=== PATIENT | female | born 1965 | race Caucasian/White ===

== ENCOUNTER 2018-01-17 10:16 | Day surgery (SDC) | payer OTHER ==
[~2018-01-17] VITALS: Ht 167.6 cm; Wt 98.9 kg
[~2018-01-17 10:16] MED LIST: ACET325 PO; AMOX500 PO; ATEN100; BUTASPCAF PO; DIVA250EC; DOCU100 PO; DOXY100 PO; HYDACE5 PO; HYDGUAL120 PO; HYDHOMSY PO; Humalog100 UNIT/1; IBUP800; IBUP800 PO; INSULANPEN SC; Inderal40 MG; Inderal40 MG PO; LEVO750 PO; LOSA25 PO; Lisinopril2.5 MG PO; META800 PO; METF500 PO; Norco 5-325 Ta1 EACH PO; PANT40 PO; SIME80CH PO; VENL75ER; Vibramycin100 MG PO; Zofran Odt4 MG SL
[2018-09-26] MEDS ORDERED: Zofran4 MG PO (16:06)
[2018-09-26] MEDS ORDERED: KETO10 PO ×2 (16:06→16:19)
== END 2018-01-17 12:23 | disposition home or self-care (01) ==
LOC: ORSCSDS 10:16
PROVIDERS: Internal Medicine Gastroenterology
PROC: 0DB68ZX Excision of Stomach, Via Natural or Artificial Opening Endoscopic, Diagnostic (ICD-10-PCS; principal; 2018-01-17 11:45)
PROC: 0D757ZZ Dilation of Esophagus, Via Natural or Artificial Opening (ICD-10-PCS; principal; 2018-01-17 11:45)
DX: R11.2 Nausea with vomiting, unspecified (principal); R10.13 Epigastric pain; R13.14 Dysphagia, pharyngoesophageal phase; K21.9 Gastro-esophageal reflux disease without esophagitis; I10 Essential (primary) hypertension; E11.9 Type 2 diabetes mellitus without complications; K20.9 Esophagitis, unspecified; E66.01 Morbid (severe) obesity due to excess calories; D86.9 Sarcoidosis, unspecified; Z87.891 Personal history of nicotine dependence; Z79.4 Long term (current) use of insulin; Z79.899 Other long term (current) drug therapy
CPT/HCPCS: 82947; 88305; 88342; J7120

== ENCOUNTER 2018-01-31 08:12 | Day surgery (SDC) | payer OTHER ==
[2018-09-26] MEDS ORDERED: Zofran4 MG PO (16:06)
[2018-09-26] MEDS ORDERED: KETO10 PO ×2 (16:06→16:19)
== END 2018-01-31 22:50 | disposition home or self-care (01) ==
LOC: MOI RAD 08:12
PROC: BP39ZZZ Magnetic Resonance Imaging (MRI) of Left Shoulder (ICD-10-PCS; principal; 2018-01-31)
DX: M75.82 Other shoulder lesions, left shoulder (principal)
CPT/HCPCS: 23350; 73222; 77002; A9577; Q9967

== ENCOUNTER 2018-04-18 06:17 | Day surgery (SDC) | payer OTHER ==
[~2018-04-18] VITALS: Ht 165.1 cm; Wt 103.7 kg
[2018-04-18] MEDS ORDERED: LOSA50 PO (07:12)
[2018-04-18] MEDS ORDERED: BASAGLAR K100 UNIT/1 SC (07:13)
[2018-04-18] MEDS ORDERED: METF500C PO (07:14)
== END 2018-04-18 11:50 | disposition home or self-care (01) ==
LOC: ORSCSDS 06:17
DX: M75.112 Incomplete rotator cuff tear or rupture of left shoulder, not specified as traumatic (principal); I10 Essential (primary) hypertension; E11.9 Type 2 diabetes mellitus without complications; Z79.4 Long term (current) use of insulin; Z79.899 Other long term (current) drug therapy; Z87.891 Personal history of nicotine dependence
CPT/HCPCS: 82947; C1713; J0171; J0360; J0690; J1100; J1885; J2250; J2405; J2550; J2765; J3010; J7120

== ENCOUNTER 2018-07-01 07:21 | Emergency (ER) | payer OTHER ==
[~2018-07-01] VITALS: Ht 165.1 cm; Wt 98.4 kg
[~2018-07-01 07:21] MED LIST changes: +BASAGLAR K100 UNIT/1 SC; +LOSA50 PO; +METF500C PO
[2018-07-01 08:26] LABS: Source, Urine Clean Catch
[2018-07-01] MEDS ORDERED: Omeprazole20 M1 PO (08:28)
[2018-07-01] MEDS ORDERED: Aspir 8181 MG PO (08:28)
[2018-07-01 08:29] LABS: BASOPHILS ABSOLUTE AUTO 0.06 K/mm3 (0.00-0.23); BASOPHILS PERCENT AUTO 1 % (0-2); EOSINOPHILS ABSOLUTE AUTO 0.32 K/mm3 (0.00-0.68); EOSINOPHILS PERCENT AUTO 4 % (0-6); Hematocrit 39.3 % (33.0-51.0); Hemoglobin 12.7 g/dL (11.5-16.0); IMMATURE GRAN ABSOLUTE AUTO 0.04 K/mm3 (0.00-0.10); IMMATURE GRAN PERCENT AUTO 1 % (0-1); LYMPHOCYTES ABSOLUTE AUTO 2.85 K/mm3 (0.84-5.20); LYMPHOCYTES PERCENT AUTO 34 % (21-46); MONOCYTES ABSOLUTE AUTO 0.48 K/mm3 (0.16-1.47); MONOCYTES PERCENT AUTO 6 % (4-13); Mean Corpuscular HGB 25.6 pg (26.0-34.0); Mean Corpuscular HGB Conc 32.3 g/dL (31.5-36.5); Mean Corpuscular Volume 79 fL (80-100); Mean Platelet Volume 11.8 fL (9.1-12.4); NEUTROPHILS ABSOLUTE AUTO 4.57 K/mm3 (1.96-9.15); NEUTROPHILS PERCENT AUTO 55 % (41-73); Platelet Count 245 K/mm3 (150-400); RDW Coefficient Variation 13.7 % (11.7-14.2); RDW Standard Deviation 39.3 fL (35.1-46.3); Red Blood Cell Count 4.97 M/mm3 (3.80-5.20); White Blood Cell Count 8.32 K/mm3 (4.00-11.30)
[2018-07-01 08:30] LABS: Bilirubin, Urine Neg (Neg); Blood, Urine Neg (Neg); Glucose Qualitative, Urine Neg (Neg); Ketones, Urine Neg (Neg); Leukocyte Esterase, Urine Neg (Neg); Nitrite, Urine Neg (Neg); Protein, Urine Neg (Neg); Urobilinogen, Urine NORM (Normal)
[2018-07-01 08:35] LABS: Appearance, Urine Clear (Clear); Color, Urine Yellow (P-Yellow)
[2018-07-01 08:47] LABS: Alanine Aminotransfer (ALT/SGP 33 U/L (12-78); Albumin, Blood 3.9 g/dL (3.4-5.0); Albumin/Globulin Ratio 0.9 (0.8-1.8); Alk Phos 111 U/L (50-136); Anion Gap 8 mmol/L (6-16); Aspartate Aminotrans (AST/SGOT 15 U/L (12-37); Bilirubin, Total 0.2 mg/dL (0.1-1.0); Blood Urea Nitrogen 17 mg/dL (8-24); Bun/Creatinine Ratio 29.4 (12.0-20.0); CO2, Blood 24 mmol/L (21-32); Chloride, Blood 105 mmol/L (98-108); Creatinine, Blood 0.58 mg/dL (0.40-1.00); Globulin, Blood 4.2 g/dL (2.2-4.0); Glomerular Filtration Rate >60 (60-); Glucose, Blood 265 mg/dL (70-99); Potassium, Blood 3.8 mmol/L (3.5-5.5); Sodium, Blood 137 mmol/L (136-145); Total Protein, Blood 8.1 g/dL (6.4-8.2)
[2018-07-01] MEDS ORDERED: Zofran Odt8 MG SL (09:36)
[2018-07-01] MEDS ORDERED: Percocet 5-3251 EACH PO (09:36)
== END 2018-07-01 10:28 | disposition home or self-care (01) ==
LOC: ER 07:21
PROVIDERS: Physician Assistant
DX: R10.11 Right upper quadrant pain (principal); E11.42 Type 2 diabetes mellitus with diabetic polyneuropathy; I10 Essential (primary) hypertension; Z88.1 Allergy status to other antibiotic agents; Z88.5 Allergy status to narcotic agent; Z88.2 Allergy status to sulfonamides; Z88.8 Allergy status to other drugs, medicaments and biological substances; Z79.899 Other long term (current) drug therapy; Z79.4 Long term (current) use of insulin; Z79.82 Long term (current) use of aspirin; Z87.891 Personal history of nicotine dependence
CPT/HCPCS: 36415; 74177; 80053; 81003; 83690; 85025; 96361; 96374; 96375; 99284-25; J1170; J2405; J7030; Q9967

== ENCOUNTER 2018-08-08 07:58 | Day surgery (SDC) | payer OTHER ==
[~2018-08-08] VITALS: Ht 167.6 cm; Wt 99.8 kg
[~2018-08-08 07:58] MED LIST changes: +Aspir 8181 MG PO; +Omeprazole20 M1 PO; +Percocet 5-3251 EACH PO; +Zofran Odt8 MG SL
[2018-08-08] MEDS ORDERED: NEBI5 (08:46)
== END 2018-08-08 10:19 | disposition home or self-care (01) ==
LOC: ORSCSDS 07:58
DX: R19.7 Diarrhea, unspecified (principal); K59.00 Constipation, unspecified; R10.84 Generalized abdominal pain; Z86.010 Personal history of colon polyps; D12.5 Benign neoplasm of sigmoid colon; K62.1 Rectal polyp; K57.30 Diverticulosis of large intestine without perforation or abscess without bleeding; K64.8 Other hemorrhoids; I10 Essential (primary) hypertension; E11.9 Type 2 diabetes mellitus without complications
CPT/HCPCS: 82947; J2250; J7120

== ENCOUNTER 2019-06-19 06:59 | Emergency (ER) | payer OTHER ==
[~2019-06-19] VITALS: Ht 165.1 cm; Wt 101.6 kg
[~2019-06-19 06:59] MED LIST changes: +KETO10 PO; +NEBI5; +Zofran4 MG PO
== END 2019-06-19 10:07 | disposition home or self-care (01) ==
LOC: ER 06:59
DX: S63.502A Unspecified sprain of left wrist, initial encounter (principal); S83.92XA Sprain of unspecified site of left knee, initial encounter; E11.40 Type 2 diabetes mellitus with diabetic neuropathy, unspecified; I10 Essential (primary) hypertension; Z79.899 Other long term (current) drug therapy; Z79.4 Long term (current) use of insulin; Z88.2 Allergy status to sulfonamides; Z88.5 Allergy status to narcotic agent; Z87.891 Personal history of nicotine dependence; W18.30XA Fall on same level, unspecified, initial encounter
CPT/HCPCS: 29125; 73110; 73564; 73590; 99283-25

== ENCOUNTER 2019-12-11 10:13 | Emergency (ER) | payer OTHER ==
[~2019-12-11] VITALS: Ht 165.1 cm; Wt 94.8 kg
[~2019-12-11 10:13] MED LIST changes: -NEBI5; +NEBI5 PO
[2019-12-11 10:43] LABS: BASOPHILS ABSOLUTE AUTO 0.09 K/mm3 (0.00-0.23); BASOPHILS PERCENT AUTO 1 % (0-2); EOSINOPHILS ABSOLUTE AUTO 0.58 K/mm3 (0.00-0.68); EOSINOPHILS PERCENT AUTO 5 % (0-6); Hematocrit 35.1 % (33.0-51.0); IMMATURE GRAN ABSOLUTE AUTO 0.29 K/mm3 (0.00-0.10); IMMATURE GRAN PERCENT AUTO 2 % (0-1); LYMPHOCYTES ABSOLUTE AUTO 2.63 K/mm3 (0.84-5.20); LYMPHOCYTES PERCENT AUTO 22 % (21-46); MONOCYTES PERCENT AUTO 5 % (4-13); Mean Corpuscular HGB 25.8 pg (26.0-34.0); Mean Corpuscular HGB Conc 31.3 g/dL (31.5-36.5); Mean Corpuscular Volume 82 fL (80-100); Mean Platelet Volume 11.4 fL (9.1-12.4); NEUTROPHILS ABSOLUTE AUTO 7.68 K/mm3 (1.96-9.15); NEUTROPHILS PERCENT AUTO 65 % (41-73); Platelet Count 383 K/mm3 (150-400); RDW Coefficient Variation 14.4 % (11.7-14.2); RDW Standard Deviation 42.5 fL (35.1-46.3); Red Blood Cell Count 4.27 M/mm3 (3.80-5.20); White Blood Cell Count 11.87 K/mm3 (4.00-11.30)
[2019-12-11 11:02] LABS: Alanine Aminotransfer (ALT/SGP 33 U/L (12-78); Albumin, Blood 3.4 g/dL (3.4-5.0); Albumin/Globulin Ratio 0.7 (0.8-1.8); Alk Phos 100 U/L (50-136); Anion Gap 7 mmol/L (6-16); Aspartate Aminotrans (AST/SGOT 25 U/L (12-37); Bilirubin, Total 0.4 mg/dL (0.1-1.0); Blood Urea Nitrogen 13 mg/dL (8-24); Bun/Creatinine Ratio 19.3 (12.0-20.0); CO2, Blood 26 mmol/L (21-32); Calcium, Blood 9.1 mg/dL (8.5-10.1); Chloride, Blood 106 mmol/L (98-108); Creatinine, Blood 0.67 mg/dL (0.40-1.00); Globulin, Blood 4.8 g/dL (2.2-4.0); Glomerular Filtration Rate >60 (60-); Glucose, Blood 171 mg/dL (70-99); Potassium, Blood 3.7 mmol/L (3.5-5.5); Sodium, Blood 139 mmol/L (136-145); Total Protein, Blood 8.2 g/dL (6.4-8.2)
[2019-12-11 11:56] LABS: Source, Urine Clean Catch
[2019-12-11 12:01] LABS: Bilirubin, Urine Neg (Neg); Blood, Urine 1+ (Neg); Glucose Qualitative, Urine Neg (Neg); Ketones, Urine 3+ (Neg); Leukocyte Esterase, Urine 1+ (Neg); Nitrite, Urine Neg (Neg); Protein, Urine 2+ (Neg); Specific Gravity, Urine 1.015 (1.003-1.022); Urobilinogen, Urine 1+ (Normal)
[2019-12-11 12:07] LABS: Appearance, Urine Clear (Clear); Color, Urine Yellow (P-Yellow)
[2019-12-11 12:14] LABS: Bacteria Few /hpf; Mucus Light (0-Heavy); Squamous Epithelial Cells Few /hpf (Few)
== END 2019-12-11 16:20 | disposition home or self-care (01) ==
LOC: ER 10:13
PROVIDERS: Emergency Medicine
DX: G89.18 Other acute postprocedural pain (principal); R10.13 Epigastric pain; E11.40 Type 2 diabetes mellitus with diabetic neuropathy, unspecified; I10 Essential (primary) hypertension; Z88.1 Allergy status to other antibiotic agents; Z88.2 Allergy status to sulfonamides; Z88.5 Allergy status to narcotic agent; Z88.8 Allergy status to other drugs, medicaments and biological substances; Z79.899 Other long term (current) drug therapy; Z79.4 Long term (current) use of insulin; Z87.891 Personal history of nicotine dependence; Z98.84 Bariatric surgery status
CPT/HCPCS: 36415; 74177; 74220; 80053; 81001; 83690; 85025; 87086; 96361; 96374-59; 96375; 96376; 99284-25; J1170; J2405; J7030; Q9967

== ENCOUNTER → 2020-01-15 | Outpatient (CLI) | payer OTHER | END | disposition home or self-care (01) | LOC: LAB 17:04 → LAB SHORT 17:04 | DX: R10.9 Unspecified abdominal pain (principal); R82.90 Unspecified abnormal findings in urine | CPT/HCPCS: 87077; 87086; 87186 ==

== ENCOUNTER 2020-06-16 08:06 | Inpatient (IN) | payer OTHER ==
[~2020-06-16] VITALS: Ht 165.1 cm; Wt 67.0 kg
[~2020-06-16 08:06] MED LIST changes: -ACET325 PO; +CEFD300 PO; +Cipro500 MG PO; +Flagyl500 MG PO; +HYDR1TAB94 PO; +Keflex500 MG PO; +ONDA4ODT SL
[2020-06-16 10:34] LABS: BASOPHILS ABSOLUTE AUTO 0.16 K/mm3 (0.00-0.23); BASOPHILS PERCENT AUTO 1 % (0-2); EOSINOPHILS ABSOLUTE AUTO 0.42 K/mm3 (0.00-0.68); EOSINOPHILS PERCENT AUTO 3 % (0-6); Hematocrit 48.5 % (33.0-51.0); IMMATURE GRAN ABSOLUTE AUTO 0.24 K/mm3 (0.00-0.10); IMMATURE GRAN PERCENT AUTO 1 % (0-1); LYMPHOCYTES ABSOLUTE AUTO 4.03 K/mm3 (0.84-5.20); LYMPHOCYTES PERCENT AUTO 24 % (21-46); MONOCYTES ABSOLUTE AUTO 1.38 K/mm3 (0.16-1.47); MONOCYTES PERCENT AUTO 8 % (4-13); Mean Corpuscular HGB 26.3 pg (26.0-34.0); Mean Corpuscular Volume 80 fL (80-100); NEUTROPHILS ABSOLUTE AUTO 10.84 K/mm3 (1.96-9.15); NEUTROPHILS PERCENT AUTO 64 % (41-73); Platelet Count 457 K/mm3 (150-400); RDW Coefficient Variation 16.5 % (11.7-14.2); RDW Standard Deviation 44.6 fL (35.1-46.3); Red Blood Cell Count 6.08 M/mm3 (3.80-5.20); White Blood Cell Count 17.07 K/mm3 (4.00-11.30)
[2020-06-16 10:40] LABS: Alanine Aminotransfer (ALT/SGP 18 U/L (12-78); Albumin, Blood 3.8 g/dL (3.4-5.0); Albumin/Globulin Ratio 0.8 (0.8-1.8); Alk Phos 131 U/L (50-136); Anion Gap 11 mmol/L (6-16); Aspartate Aminotrans (AST/SGOT 9 U/L (12-37); Bilirubin, Total 0.6 mg/dL (0.1-1.0); Blood Urea Nitrogen 15 mg/dL (8-24); CO2, Blood 25 mmol/L (21-32); Calcium, Blood 9.1 mg/dL (8.5-10.1); Chloride, Blood 103 mmol/L (98-108); Creatinine, Blood 0.65 mg/dL (0.40-1.00); Globulin, Blood 4.6 g/dL (2.2-4.0); Glomerular Filtration Rate >60 (60-); Glucose, Blood 173 mg/dL (70-99); Potassium, Blood 2.3 mmol/L (3.5-5.5); Sodium, Blood 139 mmol/L (136-145); Total Protein, Blood 8.4 g/dL (6.4-8.2)
[2020-06-16 11:38] LABS: Source, Urine Clean Catch
[2020-06-16 11:41] LABS: Appearance, Urine Cloudy (Clear); Blood, Urine 2+ (Neg); Color, Urine Yellow (P-Yellow); Glucose Qualitative, Urine Neg (Neg); Ketones, Urine 4+ (Neg); Leukocyte Esterase, Urine 1+ (Neg); Nitrite, Urine Neg (Neg); Protein, Urine 3+ (Neg); Urobilinogen, Urine 1+ (Normal)
[2020-06-16 11:53] LABS: Bilirubin, Urine 1+ (Neg)
[2020-06-16 12:05] LABS: Mucus Mod (0-Heavy); Red Blood Cells, Urine 0-2 /hpf (0-2); Squamous Epithelial Cells Mod /hpf (Few)
[2020-06-16 12:08] LABS: Bacteria Many /hpf; Other Crystals Many /hpf
[2020-06-16] MEDS ORDERED: ACET500 PO ×2 (13:15)
[2020-06-16] MEDS ORDERED: TIZA4 PO ×2 (13:16)
--- NOTE | 2020-06-16 19:30 | NUR ---
PCU DAYSHIFT SUMMARY PATIENT ALERT AND ORIENTED X4. AMBULATES WELL WITH CRUTCHES TO BED; AKA NOTED. RESP E/U ON ROOM AIR. NSR IN 70'S. PATIENT REPORTS ONGOING ABD PAIN - RELIEVED WITH MEDS PER EMAR. CDIFF R/O. ORAL VANCO. VSS. ROOM AIR. REPORT GIVEN TO MELANI SHIFT RN.
[2020-06-16 19:48] LABS: Adenovirus F 40/41 Not Detected (NOT DETECT); Astrovirus Not Detected (NOT DETECT); Campylobacter Sp Not Detected (NOT DETECT); Cryptosporidium Not Detected (NOT DETECT); Cyclospora Cayetanensis Not Detected (NOT DETECT); E. Coli O157 Not Detected (NOT DETECT); Entamoeba Histolytica Not Detected (NOT DETECT); Enteroaggregative E. coli-EAEC Not Detected (NOT DETECT); Enteropathogenic E. coli-EPEC Not Detected (NOT DETECT); Enterotoxigenic E. coli-ETEC Not Detected (NOT DETECT); Giardia Lamblia Not Detected (NOT DETECT); Norovirus GI/GII Not Detected (NOT DETECT); Plesiomonas Shigelloides Not Detected (NOT DETECT); Rotavirus A Not Detected (NOT DETECT); Salmonella Sp Not Detected (NOT DETECT); Sapovirus Not Detected (NOT DETECT); Shiga Toxin-prod E. coli-STEC Not Detected (NOT DETECT); Shigella/Enteroin E. coli-EIEC Not Detected (NOT DETECT); Vibrio Cholerae Not Detected (NOT DETECT); Vibrio Sp Not Detected (NOT DETECT); Yersinia Enterocolitica Not Detected (NOT DETECT)
[2020-06-17 04:19] LABS: BASOPHILS ABSOLUTE AUTO 0.12 K/mm3 (0.00-0.23); BASOPHILS PERCENT AUTO 1 % (0-2); EOSINOPHILS ABSOLUTE AUTO 0.98 K/mm3 (0.00-0.68); EOSINOPHILS PERCENT AUTO 6 % (0-6); Hematocrit 43.4 % (33.0-51.0); Hemoglobin 13.8 g/dL (11.5-16.0); IMMATURE GRAN ABSOLUTE AUTO 0.18 K/mm3 (0.00-0.10); IMMATURE GRAN PERCENT AUTO 1 % (0-1); LYMPHOCYTES ABSOLUTE AUTO 5.19 K/mm3 (0.84-5.20); LYMPHOCYTES PERCENT AUTO 32 % (21-46); MONOCYTES ABSOLUTE AUTO 1.41 K/mm3 (0.16-1.47); MONOCYTES PERCENT AUTO 9 % (4-13); Mean Corpuscular HGB 25.6 pg (26.0-34.0); Mean Corpuscular HGB Conc 31.8 g/dL (31.5-36.5); Mean Corpuscular Volume 80 fL (80-100); Mean Platelet Volume 11.1 fL (9.1-12.4); NEUTROPHILS ABSOLUTE AUTO 8.12 K/mm3 (1.96-9.15); NEUTROPHILS PERCENT AUTO 51 % (41-73); Platelet Count 281 K/mm3 (150-400); RDW Coefficient Variation 15.8 % (11.7-14.2); RDW Standard Deviation 45.2 fL (35.1-46.3)
[2020-06-17 04:37] LABS: Anion Gap 7 mmol/L (6-16); Blood Urea Nitrogen 9 mg/dL (8-24); Bun/Creatinine Ratio 17.2 (12.0-20.0); CO2, Blood 25 mmol/L (21-32); Calcium, Blood 8.3 mg/dL (8.5-10.1); Chloride, Blood 110 mmol/L (98-108); Creatinine, Blood 0.52 mg/dL (0.40-1.00); Glomerular Filtration Rate >60 (60-); Glucose, Blood 117 mg/dL (70-99); Magnesium, Blood 1.9 mg/dL (1.6-2.4); Phosphorus, Blood 2.2 mg/dL (2.5-4.9); Potassium, Blood 2.7 mmol/L (3.5-5.5); Sodium, Blood 142 mmol/L (136-145)
--- NOTE | 2020-06-17 06:25 | NUR ---
SHIFT SUMMARY PT A&O X4; PLEASANT & COMPLIANT W/ CARE; VSS; ELEVATED BP NOTED ON AND OFF T/O SHIFT; HOWEVER PT C/O 8 OF 10 PAIN THIS SHIFT; FENTANYL GIVEN PER EMAR; PT STATING NOT ADEQUATE; PT EXPERIENCING N/V NOT IMPROVED W/ ZOFRAN; TIP CEMENTER CLAUDE NOTIFIED; NEW ORDER GIVEN FOR DILAUDID AND COMPAZINE; PT STATES SIGNIFICANT IMPROVEMENT W/ NEW MEDICATION ORDER; O2 SATS >93 ON RA; PT HAS AKA ON R; PERSONAL CRUTCHES PRESENT IN ROOM; PT DENIES NEEDS AT THIS TIME; CALL LIGHT IN REACH; BED IN LOWEST POSITION; WILL CONTINUE TO MONITOR CLOSELY UNTIL HAND OFF TO DAY SHIFT RN.
--- NOTE | 2020-06-17 09:08 | NUR ---
ASSUME CARE: PT C/O PAIN AND NAUSEA UPON ASSESSMENT, GIVEN AND WAS EFECTIVE, NO REPORTED LOOSE STOOLS AT THIS TIME, GI PROVIDER IS CONSULTED AND WAS CALLED INTO OFFICE. PT IS CURRENTLY ON CLEAR LIQUID DIET TOLERATING WELL. VITALS STABLE HRR SINUS ON THE 70'S, BP SYSTOLIC 130'S, SATS ABOVE 98% ON ROOMAIR, AFEBRILE. POTASSIUM IN 1L BAG RUNNING AT 75MLS/HR. PT HAS R AKA USES CRUTCHES FOR MOBILITY. NO OTHER ISSUES REPORTED. WILL MONITOR
--- NOTE | 2020-06-17 15:08 | NUR ---
PT STATUS CHANGED TO MEDICAL WITH NO TELE. VITALS HAS BEEN STABLE. STILL C/O PAIN ON LUQ PAIN MEDS GIVEN X3, ALSO C/O NAUSEA ANTINAUSEA GIVEN X2 AND WAS EFFECTIVE. LIQUID LOOSE STOOL REPORTED X3 SINCE THE BEGINNING OF THE SHIFT GREENISH BROWN IN COLOR, NO OTHER ACUTE CHANGES, POTASSIUM REPLACED. REPORT GIVEN TO FRANNY ALONSO. PT TRANSFERRED TO RM 363. ALL BELONGINGS SENT WITH PT
--- NOTE | 2020-06-17 15:33 | NUR ---
SHE IS RESTING COMFORTABLY IN BED. SHE IS IN ROOM 363 FROM [facility]. SHE HAS HER CALL LIGHT. SHE HAS KPHOS AND PRIMARY IVF'S INFUSING VIA 2 SEPARATE IV SITES. BOTH SITES WNL. SHE SAYS YES HER PAIN AND NAUSEA ARE UNDER CONTROL.
--- NOTE | 2020-06-17 18:10 | NUR ---
HER KPHOS COMPLETED. CONTINUOUS IVF'S INFUSING AT 100 MLKS/HR. SHE HAS BEEN MEDICATED WITH SEVERAL DOSES OF PAIN AND NAUSEA MEDICINE. SHE IS COMFORTABLE AT PAIN LEVEL 5 BUT GETS UP TO AN 8. NO EMESIS THAT I AM AWARE OF. SHE TRANSFERRED FROM PCU TO MEDICAL FLOOR TODAY. VISITED.
--- NOTE | 2020-06-17 21:19 | NUR ---
PT REFUSING ASSESSMENT AND HS CBG CHECK. STATING THAT SHE JUST WANTS TO SLEEP AND ASKED THAT I LEAVE HER ROOM.
--- NOTE | 2020-06-18 04:42 | NUR ---
SHIFT SUMMARY PT IRRITABLE AT START OF SHIFT. WOKE PT TO COMPLETE AN ASSESSMENT AND PT BECAME VERY UPSET. REFUSING BOTH AN ASSESSMENT AND HER HS CBG'S. PT CONTINUES TO HAVE LUQ ABD PAIN AND NAUSEA. PT REQUIRING IV DILAUDID AND COMPAZINE THROUGHOUT THE NIGHT. PERCOCET 1 TAB ALSO GIVEN X 1. PT REPORTS THAT SHE IS STILL HAVING WATERY STOOL. DR. OROZCO IN TO SEE PT TONIGHT. NEW ORDERS TO START GOLYTELY AT 0600 IN PREPERATION FOR COLONOSCOPY TODAY. VITAL SIGNS STABLE. WILL CONTINUE TO MONITOR AND REPORT TO DAY RN.
[2020-06-18 05:38] LABS: Hematocrit 38.1 % (33.0-51.0); Hemoglobin 12.1 g/dL (11.5-16.0); Mean Corpuscular HGB 26.3 pg (26.0-34.0); Mean Corpuscular HGB Conc 31.8 g/dL (31.5-36.5); Mean Corpuscular Volume 83 fL (80-100); Mean Platelet Volume 11.5 fL (9.1-12.4); Platelet Count 227 K/mm3 (150-400); RDW Coefficient Variation 16.1 % (11.7-14.2); RDW Standard Deviation 48.5 fL (35.1-46.3); White Blood Cell Count 12.77 K/mm3 (4.00-11.30)
[2020-06-18 06:08] LABS: Albumin, Blood 2.6 g/dL (3.4-5.0); Anion Gap 6 mmol/L (6-16); Blood Urea Nitrogen 8 mg/dL (8-24); Bun/Creatinine Ratio 12.5 (12.0-20.0); CO2, Blood 25 mmol/L (21-32); Calcium, Blood 7.8 mg/dL (8.5-10.1); Chloride, Blood 112 mmol/L (98-108); Creatinine, Blood 0.64 mg/dL (0.40-1.00); Glomerular Filtration Rate >60 (60-); Glucose, Blood 138 mg/dL (70-99); Phosphorus, Blood 3.3 mg/dL (2.5-4.9); Potassium, Blood 2.9 mmol/L (3.5-5.5); Sodium, Blood 143 mmol/L (136-145)
--- NOTE | 2020-06-18 16:17 | NUR ---
SHE HAS BEEN WORKING ON THE GOLYTELY SLOWLY ALL DAY. HER OUTPUT IS NOT CLEAR YET. SHE UNDERSTANDS TO KEEP DRINKING THE GOLYTELY UNTIL SHE IS CLEAR. SHE WILL RESUME CL'S AFTER SHE IS CLEAR. SHE VOIDS WITHOUT DIFFICULTY. IVF'S CONTINUE AT 100/HR. ORAL POTASSIUM ELIXER GIVEN TODAY FOR K+ LEVEL OF 2.9. SHE CONTINUES TO RECEIVE COMPAZINE AND DILAUDID PRN. HER HAS BEEN IN AND OUT VISITING.
--- NOTE | 2020-06-18 18:09 | NUR ---
SHE IS CONTINUING HER BOWEL PREP SLOWLY. SHE JUST GOT UPSET THAT SHE ISN'T GETTING HER CL DINNER TRAY. I EXPLAINED THAT ONCE SHE IS CLEAR SHE CAN START HAVING SOME CLEAR LIQUIDS AGAIN PER . HE WILL SEE HER TONIGHT AND PUT IN ORDERS TO RESUME NPO AGAIN TOMORROW AT A CERTAIN TIME. I ALSO RELAYED TO HER THAT SHE WILL STILL NEED TO DRINK A LITTLE GOLYTELY TOMORROW TO CLEAR THE NEW BILE. SHE HAS RECEIVED PAIN AND NAUSEA MEDICINES THROUGHOUT THE DAY. NO EMESIS. SHE HAS NOT HAD ANY BM IN THE LAST COUPLE OF HRS. SHE VOIDS LIGHT YELLOW URINE. LAST BM SEEN WAS UNFORMED BROWN WITH SURROUNDING GOLD WATER.
[2020-06-19 05:09] LABS: Hematocrit 42.5 % (33.0-51.0); Hemoglobin 13.7 g/dL (11.5-16.0); Mean Corpuscular HGB 26.1 pg (26.0-34.0); Mean Corpuscular HGB Conc 32.2 g/dL (31.5-36.5); Mean Corpuscular Volume 81 fL (80-100); Mean Platelet Volume 11.8 fL (9.1-12.4); Platelet Count 255 K/mm3 (150-400); RDW Coefficient Variation 15.9 % (11.7-14.2); RDW Standard Deviation 47.3 fL (35.1-46.3); Red Blood Cell Count 5.24 M/mm3 (3.80-5.20); White Blood Cell Count 12.88 K/mm3 (4.00-11.30)
[2020-06-19 05:41] LABS: Anion Gap 5 mmol/L (6-16); Blood Urea Nitrogen 2 mg/dL (8-24); Bun/Creatinine Ratio 3.9 (12.0-20.0); CO2, Blood 29 mmol/L (21-32); Chloride, Blood 109 mmol/L (98-108); Creatinine, Blood 0.51 mg/dL (0.40-1.00); Glomerular Filtration Rate >60 (60-); Glucose, Blood 106 mg/dL (70-99); Magnesium, Blood 1.6 mg/dL (1.6-2.4); Phosphorus, Blood 2.2 mg/dL (2.5-4.9); Potassium, Blood 3.1 mmol/L (3.5-5.5); Sodium, Blood 143 mmol/L (136-145)
--- NOTE | 2020-06-19 05:43 | NUR ---
SHIFT SUMMARY PT IS A54 Y/O FEMALE, ADMITTED FOR COLITIS. SHE IS A&O X 4, INDEPENDENT IN THE ROOM. PT REQUIRED FREQUENT PRNS FOR ABD PAIN AND NAUSEA CONTROL THROUGH THE NIGHT. MEDICATED FOR PAIN 4X AND FOR NAUSEA 2X. VITAL SIGNS STABLE. PT RECEIVING NS + K @ 10 ML/HR. PER DR ALDRIDGE, PT IS STILL WORKING ON TESARO, BUT WAS ALLOWED CLEAR LIQIUD DIET DURING THE NIGHT. STOOLS BEGINNING TO CLEAR, THOUGH NOT FULLY YET. NO OTHER ACUTE CHANGES IN PT CONDITION NOTED. WILL CONTINUE TO MONITOR AND TREAT PER EMAR UNTIL HAND OFF TO DAY SHIFT RN.
--- NOTE | 2020-06-19 13:17 | NUR ---
UPDATED DAY SURGERY WITH PATIENTS PROGRESS WITH GOLYTELY. YELLOW WATERY BMS WITH SMALL AMT OF SEDIMENT. PER DAY SURGERY GAVIN RAMÍREZ PATIENT CAN STOP GOLYTELY NOW AND REMAIN NPO. THEY PLAN TO TAKE HER FOR PROCEDURE AT 1500.
--- NOTE | 2020-06-19 14:29 | NUR ---
"DAY SURGERY RN | REPORT TO KRISTA ALONSO VSS. A/O. POWERGLIDE IN PLACE AND FLUSHES WELL. POTASSIUM RUNNING ON PUMP PER ORDERS, PIGGYBACKED ON LACTATED RINGERS. REPORT OFF TO KRISTA ALONSO."
--- NOTE | 2020-06-19 15:17 | NUR ---
06/19/20 1517 SHAWNA JUSTIN History, Chart, Medications and Allergies reviewed before start of procedure. 3-LEAD EKG REVIEWED WITH PHYSICIAN PRIOR TO START OF PROCEDURE. O2 VIA N/C INTACT THROUGHOUT SEDATION/PROCEDURE. MONITOR INTACT WITH CONTINUOUS PULSE OXIMETRY AND INTERMITTENT BP. PATIENT DETERMINED TO BE ASA APPROPRIATE FOR PROPOFOL SEDATION PRIOR TO START OF PROCEDURE BY DR. OROZCO.
--- NOTE | 2020-06-19 17:49 | NUR ---
SHIFT SUMMARY PATIENT HAD COLONOSCPY TODAY. ONLY ONE POLYP FOUND. NO OTHER FINDINGS. MEDICATED FOR PAIN SEVERAL TIMES TODAY. ADVANCED TO REG DIET AND SHE IS WANTING TO TRY PO PAIN MEDICATIONS THIS EVENING
[2020-06-20 06:16] LABS: BASOPHILS ABSOLUTE AUTO 0.08 K/mm3 (0.00-0.23); BASOPHILS PERCENT AUTO 1 % (0-2); EOSINOPHILS ABSOLUTE AUTO 0.59 K/mm3 (0.00-0.68); EOSINOPHILS PERCENT AUTO 5 % (0-6); Hemoglobin 11.3 g/dL (11.5-16.0); IMMATURE GRAN ABSOLUTE AUTO 0.19 K/mm3 (0.00-0.10); IMMATURE GRAN PERCENT AUTO 2 % (0-1); LYMPHOCYTES PERCENT AUTO 42 % (21-46); MONOCYTES ABSOLUTE AUTO 0.77 K/mm3 (0.16-1.47); MONOCYTES PERCENT AUTO 7 % (4-13); Mean Corpuscular HGB 26.4 pg (26.0-34.0); Mean Corpuscular HGB Conc 32.3 g/dL (31.5-36.5); Mean Corpuscular Volume 82 fL (80-100); Mean Platelet Volume 11.6 fL (9.1-12.4); NEUTROPHILS ABSOLUTE AUTO 4.88 K/mm3 (1.96-9.15); NEUTROPHILS PERCENT AUTO 44 % (41-73); Platelet Count 194 K/mm3 (150-400); RDW Coefficient Variation 16.1 % (11.7-14.2); RDW Standard Deviation 47.9 fL (35.1-46.3); Red Blood Cell Count 4.28 M/mm3 (3.80-5.20); White Blood Cell Count 11.21 K/mm3 (4.00-11.30)
[2020-06-20 06:33] LABS: Anion Gap 2 mmol/L (6-16); Blood Urea Nitrogen 1 mg/dL (8-24); CO2, Blood 34 mmol/L (21-32); Calcium, Blood 7.6 mg/dL (8.5-10.1); Chloride, Blood 107 mmol/L (98-108); Glomerular Filtration Rate >60 (60-); Glucose, Blood 100 mg/dL (70-99); Potassium, Blood 3.7 mmol/L (3.5-5.5); Sodium, Blood 143 mmol/L (136-145)
--- NOTE | 2020-06-20 06:45 | NUR ---
SHIFT SUMMARY PT IS A 54 Y/O FEMALE, ADMITTED FOR COLITIS. SHE IS A&O X 4, AND INDEPENDENT IN THE ROOM ON CRUTCHES WITH A R AKA. SHE WAS MEDICATED 2X FOR NAUSEA WITH PRN ZOFRAN, AND FOR PAIN WITH PERCOCET 2X AND ONCE WITH IV DILAUDID FOR ACUTE SEVERE PAIN. NO C/O SOB. VITAL SIGNS STABLE. PT RECEIVING NS + K @ 100 ML/HR. NO ACUTE CHANGES IN PT CONDITION NOTED. WILL CONTINUE TO MONITOR AND TREAT PER EMAR UNTIL HAND OFF TO DAY SHIFT RN.
[2020-06-20] MEDS ORDERED: Percocet 5-3251 EACH PO ×2 (11:20)
--- NOTE | 2020-06-20 11:49 | NUR ---
PT DISCHARGED AT 1150 WITH TO TRANSPORT VIA WHEELCHAIR. PT HAD ALL PAPER WORK REVIEWED AND EDUCATIONAL MATERIAL SENT. PT AOX4 AND COOPERATIVE OF CARE. TREATED FOR ABDMONINAL PAIN PER EMAR X1. ALL PERSONAL BELONINGS COLLECTED NO DISTRESS NOTED.
== END 2020-06-20 11:47 | disposition home or self-care (01) | DRG 872 ==
LOC: ER 08:06 → PCU 08:07 → MEDS 08:07 → ER 08:07 → PCU 13:38 → MEDS 13:39 → PCU 14:53 → MEDS 06-17 15:18 → PCU 06-17 15:18 → MEDS 06-17 22:38
PROVIDERS: Emergency Medicine; Internal Medicine; Physician Assistant; ADMIT Internal Medicine
PROC: 0DBK8ZX Excision of Ascending Colon, Via Natural or Artificial Opening Endoscopic, Diagnostic (ICD-10-PCS; principal; 2020-06-20)
DX: A41.9 Sepsis, unspecified organism (principal); Z98.84 Bariatric surgery status; G56.00 Carpal tunnel syndrome, unspecified upper limb; E87.6 Hypokalemia; E83.39 Other disorders of phosphorus metabolism; Z20.828 Contact with and (suspected) exposure to other viral communicable diseases; I10 Essential (primary) hypertension; K21.9 Gastro-esophageal reflux disease without esophagitis; K63.5 Polyp of colon; K52.9 Noninfective gastroenteritis and colitis, unspecified; Z87.891 Personal history of nicotine dependence
CPT/HCPCS: 0097U; 36415; 74177; 80048; 80053; 80069; 81001; 82947; 83605; 83690; 83735; 84100; 85025; 85027; 85651; 86140; 87040; 87086; 88305; 93005; 93010; 96365-59; 96366; 96375; 96376; 99285-25; C1751; J0780; J1170; J1650; J1885; J2250; J2405; J2704; J3010; J3475; J3480; J7030; J7060; J7120; Q9967; U0002

== ENCOUNTER 2020-06-29 05:46 | Emergency (ER) | payer OTHER ==
[~2020-06-29] VITALS: Ht 175.3 cm; Wt 63.5 kg
[~2020-06-29 05:46] MED LIST changes: +ACET500 PO; +TIZA4 PO
[2020-06-29 07:31] LABS: BASOPHILS ABSOLUTE AUTO 0.06 K/mm3 (0.00-0.23); BASOPHILS PERCENT AUTO 0 % (0-2); EOSINOPHILS ABSOLUTE AUTO 0.09 K/mm3 (0.00-0.68); EOSINOPHILS PERCENT AUTO 1 % (0-6); Hematocrit 49.3 % (33.0-51.0); Hemoglobin 15.5 g/dL (11.5-16.0); IMMATURE GRAN ABSOLUTE AUTO 0.07 K/mm3 (0.00-0.10); IMMATURE GRAN PERCENT AUTO 1 % (0-1); LYMPHOCYTES ABSOLUTE AUTO 2.31 K/mm3 (0.84-5.20); LYMPHOCYTES PERCENT AUTO 15 % (21-46); MONOCYTES ABSOLUTE AUTO 0.72 K/mm3 (0.16-1.47); MONOCYTES PERCENT AUTO 5 % (4-13); Mean Corpuscular HGB 26.4 pg (26.0-34.0); Mean Corpuscular HGB Conc 31.4 g/dL (31.5-36.5); Mean Corpuscular Volume 84 fL (80-100); Mean Platelet Volume 10.8 fL (9.1-12.4); NEUTROPHILS ABSOLUTE AUTO 11.88 K/mm3 (1.96-9.15); NEUTROPHILS PERCENT AUTO 78 % (41-73); Platelet Count 381 K/mm3 (150-400); RDW Coefficient Variation 16.7 % (11.7-14.2); RDW Standard Deviation 48.5 fL (35.1-46.3); Red Blood Cell Count 5.87 M/mm3 (3.80-5.20); White Blood Cell Count 15.13 K/mm3 (4.00-11.30)
[2020-06-29 08:06] LABS: Alanine Aminotransfer (ALT/SGP 26 U/L (12-78); Albumin, Blood 3.3 g/dL (3.4-5.0); Albumin/Globulin Ratio 0.7 (0.8-1.8); Alk Phos 135 U/L (50-136); Anion Gap 6 mmol/L (6-16); Aspartate Aminotrans (AST/SGOT 17 U/L (12-37); Bilirubin, Total 0.4 mg/dL (0.1-1.0); Blood Urea Nitrogen 10 mg/dL (8-24); Bun/Creatinine Ratio 15.9 (12.0-20.0); CO2, Blood 27 mmol/L (21-32); Calcium, Blood 9.1 mg/dL (8.5-10.1); Chloride, Blood 108 mmol/L (98-108); Creatinine, Blood 0.63 mg/dL (0.40-1.00); Globulin, Blood 4.5 g/dL (2.2-4.0); Glomerular Filtration Rate >60 (60-); Glucose, Blood 170 mg/dL (70-99); Potassium, Blood 3.3 mmol/L (3.5-5.5); Sodium, Blood 141 mmol/L (136-145); Total Protein, Blood 7.8 g/dL (6.4-8.2); Troponin I <0.015 ng/mL (0.000-0.040)
[2020-06-29 09:40] LABS: Source, Urine Clean Catch
[2020-06-29 09:51] LABS: Bilirubin, Urine Neg (Neg); Blood, Urine Neg (Neg); Glucose Qualitative, Urine Neg (Neg); Ketones, Urine 1+ (Neg); Leukocyte Esterase, Urine Neg (Neg); Nitrite, Urine Neg (Neg); Protein, Urine 1+ (Neg); Specific Gravity, Urine 1.005 (1.003-1.022); Urobilinogen, Urine NORM (Normal)
[2020-06-29 09:56] LABS: Appearance, Urine Clear (Clear); Color, Urine Yellow (P-Yellow)
[2020-06-29] MEDS ORDERED: Roxicodone5 MG PO (10:18)
[2020-06-29] MEDS ORDERED: PROC5 PO (10:18)
== END 2020-06-29 10:43 | disposition home or self-care (01) ==
LOC: ER 05:46
PROVIDERS: Emergency Medicine
DX: R10.10 Upper abdominal pain, unspecified (principal); R11.2 Nausea with vomiting, unspecified; R30.0 Dysuria; R19.7 Diarrhea, unspecified; E11.40 Type 2 diabetes mellitus with diabetic neuropathy, unspecified; I10 Essential (primary) hypertension; Z88.2 Allergy status to sulfonamides; Z88.1 Allergy status to other antibiotic agents; Z88.6 Allergy status to analgesic agent; Z88.8 Allergy status to other drugs, medicaments and biological substances; Z79.899 Other long term (current) drug therapy
CPT/HCPCS: 36415; 74177; 80053; 83690; 84484; 85025; 96361; 96374-59; 96375; 96376; 99284-25; J1630; J2270; J2405; J7030; Q9967

== ENCOUNTER 2020-07-13 11:09 | Emergency (ER) | payer OTHER ==
[~2020-07-13] VITALS: Ht 167.6 cm; Wt 56.7 kg
[~2020-07-13 11:09] MED LIST changes: +PROC5 PO; +Roxicodone5 MG PO
[2020-07-13 11:40] LABS: BASOPHILS ABSOLUTE AUTO 0.07 K/mm3 (0.00-0.23); BASOPHILS PERCENT AUTO 0 % (0-2); EOSINOPHILS ABSOLUTE AUTO 0.05 K/mm3 (0.00-0.68); EOSINOPHILS PERCENT AUTO 0 % (0-6); Hematocrit 44.3 % (33.0-51.0); Hemoglobin 14.3 g/dL (11.5-16.0); IMMATURE GRAN ABSOLUTE AUTO 0.06 K/mm3 (0.00-0.10); IMMATURE GRAN PERCENT AUTO 0 % (0-1); LYMPHOCYTES ABSOLUTE AUTO 3.07 K/mm3 (0.84-5.20); LYMPHOCYTES PERCENT AUTO 19 % (21-46); MONOCYTES PERCENT AUTO 4 % (4-13); Mean Corpuscular HGB 26.7 pg (26.0-34.0); Mean Corpuscular HGB Conc 32.3 g/dL (31.5-36.5); Mean Corpuscular Volume 83 fL (80-100); Mean Platelet Volume 11.4 fL (9.1-12.4); NEUTROPHILS ABSOLUTE AUTO 11.94 K/mm3 (1.96-9.15); NEUTROPHILS PERCENT AUTO 75 % (41-73); Platelet Count 411 K/mm3 (150-400); RDW Coefficient Variation 16.3 % (11.7-14.2); RDW Standard Deviation 49.4 fL (35.1-46.3); Red Blood Cell Count 5.35 M/mm3 (3.80-5.20); White Blood Cell Count 15.89 K/mm3 (4.00-11.30)
[2020-07-13 12:44] LABS: Alanine Aminotransfer (ALT/SGP 27 U/L (12-78); Albumin/Globulin Ratio 0.7 (0.8-1.8); Alk Phos 132 U/L (50-136); Anion Gap 12 mmol/L (6-16); Aspartate Aminotrans (AST/SGOT 21 U/L (12-37); Blood Urea Nitrogen 17 mg/dL (8-24); Bun/Creatinine Ratio 34.1 (12.0-20.0); CO2, Blood 22 mmol/L (21-32); Calcium, Blood 8.9 mg/dL (8.5-10.1); Chloride, Blood 104 mmol/L (98-108); Globulin, Blood 4.3 g/dL (2.2-4.0); Glomerular Filtration Rate >60 (60-); Glucose, Blood 165 mg/dL (70-99); Potassium, Blood 3.3 mmol/L (3.5-5.5); Sodium, Blood 138 mmol/L (136-145); Total Protein, Blood 7.3 g/dL (6.4-8.2)
[2020-07-13 12:47] LABS: Bilirubin, Total 0.6 mg/dL (0.1-1.0)
[2020-07-13] MEDS ORDERED: Percocet 10-321 EACH PO (13:33)
== END 2020-07-13 14:37 | disposition home or self-care (01) ==
LOC: ER 11:09
PROVIDERS: Emergency Medicine
DX: R10.10 Upper abdominal pain, unspecified (principal); G89.29 Other chronic pain; R11.2 Nausea with vomiting, unspecified; R19.7 Diarrhea, unspecified; E11.40 Type 2 diabetes mellitus with diabetic neuropathy, unspecified; I10 Essential (primary) hypertension; Z88.2 Allergy status to sulfonamides; Z88.1 Allergy status to other antibiotic agents; Z88.5 Allergy status to narcotic agent; Z88.8 Allergy status to other drugs, medicaments and biological substances; Z79.899 Other long term (current) drug therapy
CPT/HCPCS: 36415; 74022; 80053; 83690; 85025; 96374; 96375; 96376; 99284-25; A9270; J0780; J1170; J7030

== ENCOUNTER 2020-07-15 09:16 | Emergency (ER) | payer OTHER ==
[~2020-07-15] VITALS: Ht 167.6 cm; Wt 56.7 kg
[~2020-07-15 09:16] MED LIST changes: +Percocet 10-321 EACH PO
[2020-07-15 09:50] LABS: BASOPHILS ABSOLUTE AUTO 0.06 K/mm3 (0.00-0.23); BASOPHILS PERCENT AUTO 0 % (0-2); EOSINOPHILS ABSOLUTE AUTO 0.19 K/mm3 (0.00-0.68); EOSINOPHILS PERCENT AUTO 1 % (0-6); Hematocrit 40.8 % (33.0-51.0); Hemoglobin 13.1 g/dL (11.5-16.0); IMMATURE GRAN ABSOLUTE AUTO 0.05 K/mm3 (0.00-0.10); IMMATURE GRAN PERCENT AUTO 0 % (0-1); LYMPHOCYTES ABSOLUTE AUTO 3.67 K/mm3 (0.84-5.20); LYMPHOCYTES PERCENT AUTO 26 % (21-46); MONOCYTES PERCENT AUTO 4 % (4-13); Mean Corpuscular HGB 26.6 pg (26.0-34.0); Mean Corpuscular HGB Conc 32.1 g/dL (31.5-36.5); Mean Corpuscular Volume 83 fL (80-100); Mean Platelet Volume 11.7 fL (9.1-12.4); NEUTROPHILS ABSOLUTE AUTO 9.46 K/mm3 (1.96-9.15); NEUTROPHILS PERCENT AUTO 67 % (41-73); Platelet Count 361 K/mm3 (150-400); RDW Coefficient Variation 16.4 % (11.7-14.2); RDW Standard Deviation 50.2 fL (35.1-46.3); Red Blood Cell Count 4.92 M/mm3 (3.80-5.20); White Blood Cell Count 14.03 K/mm3 (4.00-11.30)
[2020-07-15 10:23] LABS: Alanine Aminotransfer (ALT/SGP 31 U/L (12-78); Albumin, Blood 2.6 g/dL (3.4-5.0); Albumin/Globulin Ratio 0.6 (0.8-1.8); Alk Phos 150 U/L (50-136); Anion Gap 11 mmol/L (6-16); Aspartate Aminotrans (AST/SGOT 34 U/L (12-37); Bilirubin, Total 0.7 mg/dL (0.1-1.0); Blood Urea Nitrogen 12 mg/dL (8-24); Bun/Creatinine Ratio 27.7 (12.0-20.0); CO2, Blood 21 mmol/L (21-32); Calcium, Blood 8.4 mg/dL (8.5-10.1); Chloride, Blood 104 mmol/L (98-108); Creatinine, Blood 0.43 mg/dL (0.40-1.00); Globulin, Blood 4.1 g/dL (2.2-4.0); Glomerular Filtration Rate >60 (60-); Glucose, Blood 90 mg/dL (70-99); Potassium, Blood 3.4 mmol/L (3.5-5.5); Sodium, Blood 136 mmol/L (136-145); Total Protein, Blood 6.7 g/dL (6.4-8.2)
[2020-07-15] MEDS ORDERED: PROM25 PO (11:56)
== END 2020-07-15 12:05 | disposition home or self-care (01) ==
LOC: ER 09:16
PROVIDERS: Emergency Medicine
DX: R10.13 Epigastric pain (principal); R11.2 Nausea with vomiting, unspecified; E11.9 Type 2 diabetes mellitus without complications; I10 Essential (primary) hypertension; Z87.891 Personal history of nicotine dependence
CPT/HCPCS: 36415; 80053; 83690; 85025; 96361; 96374; 96375; 99284-25; J1170; J2405; J2550; J7120

== ENCOUNTER 2020-07-20 03:12 | Inpatient (IN) | payer OTHER ==
[~2020-07-20] VITALS: Ht 165.1 cm; Wt 58.4 kg
[~2020-07-20 03:12] MED LIST changes: +PROM25 PO
[2020-07-20 04:00] LABS: Alanine Aminotransfer (ALT/SGP 34 U/L (12-78); Albumin, Blood 2.8 g/dL (3.4-5.0); Albumin/Globulin Ratio 0.6 (0.8-1.8); Alk Phos 166 U/L (50-136); Anion Gap 15 mmol/L (6-16); Aspartate Aminotrans (AST/SGOT 24 U/L (12-37); Bilirubin, Total 0.8 mg/dL (0.1-1.0); Blood Urea Nitrogen 15 mg/dL (8-24); Bun/Creatinine Ratio 20.3 (12.0-20.0); CO2, Blood 15 mmol/L (21-32); Calcium, Blood 8.5 mg/dL (8.5-10.1); Chloride, Blood 105 mmol/L (98-108); Creatinine, Blood 0.74 mg/dL (0.40-1.00); Globulin, Blood 4.4 g/dL (2.2-4.0); Glomerular Filtration Rate >60 (60-); Glucose, Blood 241 mg/dL (70-99); Potassium, Blood 3.4 mmol/L (3.5-5.5); Sodium, Blood 135 mmol/L (136-145); Total Protein, Blood 7.2 g/dL (6.4-8.2)
[2020-07-20 05:27] LABS: Beta-hydroxybutyrate 23.7 mg/dL (0.2-2.8); Magnesium, Blood 1.2 mg/dL (1.6-2.4)
[2020-07-20 05:57] LABS: BASOPHILS ABSOLUTE AUTO 0.03 K/mm3 (0.00-0.23); BASOPHILS PERCENT AUTO 0 % (0-2); EOSINOPHILS ABSOLUTE AUTO 0.02 K/mm3 (0.00-0.68); EOSINOPHILS PERCENT AUTO 0 % (0-6); Hematocrit 40.1 % (33.0-51.0); Hemoglobin 13.1 g/dL (11.5-16.0); IMMATURE GRAN ABSOLUTE AUTO 0.09 K/mm3 (0.00-0.10); IMMATURE GRAN PERCENT AUTO 1 % (0-1); LYMPHOCYTES ABSOLUTE AUTO 1.67 K/mm3 (0.84-5.20); LYMPHOCYTES PERCENT AUTO 14 % (21-46); MONOCYTES ABSOLUTE AUTO 0.62 K/mm3 (0.16-1.47); MONOCYTES PERCENT AUTO 5 % (4-13); Mean Corpuscular HGB 26.8 pg (26.0-34.0); Mean Corpuscular HGB Conc 32.7 g/dL (31.5-36.5); Mean Corpuscular Volume 82 fL (80-100); Mean Platelet Volume 11.5 fL (9.1-12.4); NEUTROPHILS ABSOLUTE AUTO 9.51 K/mm3 (1.96-9.15); NEUTROPHILS PERCENT AUTO 80 % (41-73); Platelet Count 359 K/mm3 (150-400); RDW Coefficient Variation 15.9 % (11.7-14.2); RDW Standard Deviation 47.8 fL (35.1-46.3); Red Blood Cell Count 4.89 M/mm3 (3.80-5.20); White Blood Cell Count 11.94 K/mm3 (4.00-11.30)
[2020-07-20 06:16] LABS: Anion Gap 10 mmol/L (6-16); Blood Urea Nitrogen 14 mg/dL (8-24); Bun/Creatinine Ratio 20.1 (12.0-20.0); CO2, Blood 25 mmol/L (21-32); Calcium, Blood 8.1 mg/dL (8.5-10.1); Chloride, Blood 105 mmol/L (98-108); Glomerular Filtration Rate >60 (60-); Glucose, Blood 202 mg/dL (70-99); Potassium, Blood 2.8 mmol/L (3.5-5.5); Sodium, Blood 140 mmol/L (136-145)
[2020-07-20] MEDS ORDERED: BENADRYL25 MG PO (08:00)
[2020-07-20 09:59] LABS: Source, Urine Clean Catch
[2020-07-20 10:20] LABS: Appearance, Urine Clear (Clear); Bilirubin, Urine Neg (Neg); Blood, Urine 5+ (Neg); Color, Urine Yellow (P-Yellow); Glucose Qualitative, Urine Neg (Neg); Ketones, Urine 3+ (Neg); Leukocyte Esterase, Urine Neg (Neg); Nitrite, Urine Neg (Neg); Protein, Urine 1+ (Neg); Specific Gravity, Urine 1.015 (1.003-1.022); Urobilinogen, Urine 1+ (Normal)
[2020-07-20 10:37] LABS: Red Blood Cells, Urine TNTC /hpf (0-2); Squamous Epithelial Cells Many /hpf (Few)
[2020-07-20 10:39] LABS: Bacteria Mod /hpf
[2020-07-20 14:26] LABS: Albumin, Blood 2.2 g/dL (3.4-5.0); Anion Gap 6 mmol/L (6-16); Blood Urea Nitrogen 10 mg/dL (8-24); Bun/Creatinine Ratio 24.9 (12.0-20.0); CO2, Blood 23 mmol/L (21-32); Calcium, Blood 7.5 mg/dL (8.5-10.1); Chloride, Blood 110 mmol/L (98-108); Glomerular Filtration Rate >60 (60-); Glucose, Blood 126 mg/dL (70-99); Magnesium, Blood 2.2 mg/dL (1.6-2.4); Potassium, Blood 3.4 mmol/L (3.5-5.5); Sodium, Blood 139 mmol/L (136-145)
--- NOTE | 2020-07-20 15:57 | NUR ---
SHE HAS BEEN RECEIVING IV FENTANYL Q4 HRS AND SLEEPS IN BETWEEN. ROUNDED EARLIER. SHE SAID SHE COULD TRY CLEAR LIQUIDS AT DINNER IF SHE WANTS. DRY HEEVES THIS MORNING. NO EMESIS. HER IS BACK AT THE BEDSIDE AFTER BEING GONE FOR A FEW HRS.
--- NOTE | 2020-07-20 16:54 | NUR ---
SHE RECEIVES FENTANYL 50 MCGS BUT ASKS FOR ANOTHER DOSE IN 3 HRS. I JUST GAVE HER A KPAD FOR HER ABD TO HELP HER GET THROUGH TO THE 4TH HR. NO NAUSEA THIS AFTERNOON. U.O. IS STILL CONCENTRATED CHARLENE. HER VISITED TWICE TODAY AND JUST LEFT FOR THE EVENING. K+ LEVEL CAME UP AFTER THE K-RIDER. IVF'S CONTINUE AT 100 MLS/HR. TELE NSR. NO FEVER.
--- NOTE | 2020-07-21 05:14 | NUR ---
SHIFT SUMMARY NO ACUTE CHANGES THIS SHIFT, MEDICATED PER MAR FOR PAIN WHICH PT STATES IS NOT WELL CONTROLLED, PT STATES FENT "DOES NOT LAST", REC ORDER FOR 1X 50MCG FENT THIS AM- BROUGHT PAIN FROM 07/23 TO 03/22, MEDICATED FOR NAUSEA X2, PT RESTING AT THIS TIME, CALL LIGHT IN REACH, WILL CONT TO MONITOR UNTIL REPORT GIVEN TO DAY RN.
[2020-07-21 05:31] LABS: BASOPHILS ABSOLUTE AUTO 0.06 K/mm3 (0.00-0.23); BASOPHILS PERCENT AUTO 1 % (0-2); EOSINOPHILS PERCENT AUTO 2 % (0-6); Hematocrit 40.5 % (33.0-51.0); Hemoglobin 13.3 g/dL (11.5-16.0); IMMATURE GRAN ABSOLUTE AUTO 0.05 K/mm3 (0.00-0.10); IMMATURE GRAN PERCENT AUTO 1 % (0-1); LYMPHOCYTES ABSOLUTE AUTO 3.82 K/mm3 (0.84-5.20); LYMPHOCYTES PERCENT AUTO 38 % (21-46); MONOCYTES ABSOLUTE AUTO 0.66 K/mm3 (0.16-1.47); MONOCYTES PERCENT AUTO 7 % (4-13); Mean Corpuscular HGB Conc 32.8 g/dL (31.5-36.5); Mean Corpuscular Volume 82 fL (80-100); Mean Platelet Volume 11.6 fL (9.1-12.4); NEUTROPHILS ABSOLUTE AUTO 5.16 K/mm3 (1.96-9.15); NEUTROPHILS PERCENT AUTO 52 % (41-73); Platelet Count 402 K/mm3 (150-400); RDW Coefficient Variation 16.6 % (11.7-14.2); RDW Standard Deviation 49.1 fL (35.1-46.3); Red Blood Cell Count 4.93 M/mm3 (3.80-5.20); White Blood Cell Count 9.95 K/mm3 (4.00-11.30)
[2020-07-21 05:56] LABS: Alanine Aminotransfer (ALT/SGP 30 U/L (12-78); Albumin, Blood 2.7 g/dL (3.4-5.0); Albumin/Globulin Ratio 0.6 (0.8-1.8); Alk Phos 152 U/L (50-136); Anion Gap 9 mmol/L (6-16); Aspartate Aminotrans (AST/SGOT 31 U/L (12-37); Bilirubin, Total 0.6 mg/dL (0.1-1.0); Blood Urea Nitrogen 5 mg/dL (8-24); Bun/Creatinine Ratio 9.7 (12.0-20.0); CO2, Blood 26 mmol/L (21-32); Calcium, Blood 7.7 mg/dL (8.5-10.1); Chloride, Blood 104 mmol/L (98-108); Creatinine, Blood 0.52 mg/dL (0.40-1.00); Globulin, Blood 4.2 g/dL (2.2-4.0); Glomerular Filtration Rate >60 (60-); Glucose, Blood 110 mg/dL (70-99); Potassium, Blood 2.8 mmol/L (3.5-5.5); Sodium, Blood 139 mmol/L (136-145); Total Protein, Blood 6.9 g/dL (6.4-8.2)
--- NOTE | 2020-07-21 11:17 | NUR ---
SHE STARTED THE DAY WITH ABD PAIN AND NAUSEA. SHE AND THE NIGHT RN REPORTED A VERY PAINFUL AND NAUSEATING NIGHT. I REPORTED THIS TO . JUST AFTER 0830 I MEDICATED HER WITH FENTANYL. I FOLLOWED THAT WITH PHENERGAN FOR NAUSEA AND TO POTENTIATE THE FENTANYL. A K-RIDER IS INFUSING FOR HER HYPOKALEMIA. I HAVE SALINE INFUSING CONCURRENTLY SO THAT HER VEIN CAN TOLERATE THE POTASSIUM.WE DID NOT GIVE HER HER CL BREAKFAST BECAUSE HER SYMPTOMS RESURGED YESTERDAY EVENING AFTER SHE STARTED CL'S. SHE WAS VOMITING HER HOT TEA THIS MORNING WHEN I ARRIVED. SHE HAS BEEN RESTING QUIETLY SINCE HER LAST DOSES OF MEDICATION. HER STOPPED IN TO SEE HER BEFORE HE WENT TO HIS JOB.
--- NOTE | 2020-07-21 16:49 | NUR ---
SHE HAS TAKEN SOME FL DIET TODAY. NO EMESIS. SHE CONTINUES TO HAVE UPPER ABD PAIN BUT IT IS MODERATELY CONTROLLED WITH THE PAIN MEDICINES. HYDROCODONE WAS ADDED TODAY. SHE UNDERSTANDS SHE IS TO TAKE IT FIRST AND ONLY TAKE THE FENTANYL FOR EXTREME PAIN. TIZANIDINE INCREASED TO TID. TUMMS ADDED. IVF'S STOPPED./ POTASSIUM REPLACEMENT GIVEN BOTH IV AND PO. HER BP RUNS HIGH WHEN SHE HAS A LOT OF PAIN. SHE VOIDS WELL AND WALKED WITH A WALKER TO THE BATHROOM MID-AFTERNOON AND HAD A MEDIUM FORMED BM. NO OTHER CHANGES.
--- NOTE | 2020-07-22 06:01 | NUR ---
SHIFT SUMMARY PT RESTED OFF AND ON THIS SHIFT. PT TEARFUL AND FRUSTRATED BY HER CURRENT ILLNESS. SHE STATES THAT SHE HAS BEEN FIGHTING THE ABD PAIN SINCE MAY AND THAT SHE IS TIRED. SUPPORT PROVIDED. PT CONTINUES TO HAVE INTERMITTENT ABD PAIN T/O THE NIGHT WITH OCCASIONALLY NAUSEA. PT HAS HAD NO EMESIS. MEDICATED FOR PAIN AND NAUSEA PER EMAR. PT STATES THAT SHE FEELS THE PAIN GOTTEN WORSE SINCE HER STAY. PT CONTINUES TO HAVE REGULAR BOWEL MOVEMENTS WITHOUT ABNOMARLITY. APPETITE APPEARS GOOD. SHE REQUESTS TEA AND SEVERAL CUPS OF BROTH T/O SHIFT. THERE HAVE BEEN NO ACUTE CHANGES OVERNIGHT. VITALS STABLE. BED IN LOWEST POSITION, CALL LIGHT WITHIN REACH.
--- NOTE | 2020-07-22 07:26 | NUR ---
ASSUMED CARE OF PT- BEDSIDE REPORT COMPLETED WITH NIGHT GAVIN VAUGHAN. PT SITTING UP IN BED ROCKING BACK AND FORTH CRYING. MEDICATED AT THE TIME OF BEDSIDE REPORT. PT HAS Hx DIVERTICULITIS. PT STATED THE PAIN TO BE 10/10 ACROSS HER UPPER ABDOMEN AND DOWN BOTH SIDES. BP ELEVATED 185/114. MEDICATED FOR PAIN AT THE TIME OF REPORT WILL RECHECK BP IN 1 HOUR. WILL CTM.
--- NOTE | 2020-07-22 08:58 | NUR ---
SPOKE TO DR COLEY- SPOKE TO ABOUT PT ELEVATED BP SHE IS AWARE. PT PAIN DOWN FROM 0700 VITALS FROM 08/22 TO 03/22 AT THE TIME OF REPEAT VITALS SBP STILL 190'S
--- NOTE | 2020-07-22 09:48 | NUR ---
PAGED GI DOCTOR TO CALL IN CONSULT WAITING FOR A CALL BACK.
--- NOTE | 2020-07-22 11:18 | NUR ---
PAGED DR WELLS A SECOND TIME FOR CONSULT REQUEST. WAITING FOR A CALL BACK.
[2020-07-22 12:07] LABS: Alanine Aminotransfer (ALT/SGP 27 U/L (12-78); Albumin, Blood 2.2 g/dL (3.4-5.0); Albumin/Globulin Ratio 0.6 (0.8-1.8); Alk Phos 113 U/L (50-136); Anion Gap 4 mmol/L (6-16); Aspartate Aminotrans (AST/SGOT 19 U/L (12-37); Bilirubin, Total 0.2 mg/dL (0.1-1.0); Blood Urea Nitrogen 6 mg/dL (8-24); CO2, Blood 29 mmol/L (21-32); Calcium, Blood 7.7 mg/dL (8.5-10.1); Chloride, Blood 105 mmol/L (98-108); Globulin, Blood 3.4 g/dL (2.2-4.0); Glomerular Filtration Rate >60 (60-); Glucose, Blood 313 mg/dL (70-99); Potassium, Blood 3.8 mmol/L (3.5-5.5); Sodium, Blood 138 mmol/L (136-145); Total Protein, Blood 5.6 g/dL (6.4-8.2)
--- NOTE | 2020-07-22 16:58 | NUR ---
CALLED DR COLEMAN- PT BP VERY HIGH ON EVENING VITALS MEDICATED FOR PAIN PER PT REQUEST. VITALS RECHECK 1 HOUR POST PAIN MEDICATION VITAL RECHECK COMPLETED. BP 84/56 RECHECKED 3 TIMES THE THIRD TIME WAS DONE MANUALLY. CALLED DR COLEMAN. RECIEVED ORDER FOR 250ML FLUID BOLUS, RECHECK VITALS PRIOR TO THE BOLUS.
--- NOTE | 2020-07-22 19:33 | NUR ---
SHIFT SUMMARY- PT BP DROPPED TODAY POSSIBLY R/T PAIN MANAGEMENT MEDS. SPOKE TO DR COLEMAN 250ML BOLUS GIVEN AND SBP WENT UP TO 87. DR BULLOCK MAINTENANCE FLUIDS ORDERED, RN ADVISED TO WATCH BP WHEN GIVING PAIN AND NAUSEA MEDICATIONS. PASSED ALL ON IN REPORT TO NIGHT RN. PT IV NOT PATENT NEW IV PLACED IN IMAGING. IV CURRENTLY INFUSING NS WITH 20KCL. IV IS POSITIONAL.
--- NOTE | 2020-07-23 04:32 | NUR ---
HEAD OF INSIGHT SUMMARY DAYSHIFT REPORTED THAT THE PT HAD MULTIPLE LOW BP'S FOLLOWING PAIN MEDICATION ADMINSTRATION HOWEVER PT CLAIM ED THAT IT IS HER TIZANIDINE THAT CAUSES HER BP TO DROP SO PAIN MEDICATION WAS GIVEN PER ORDER/REQUEST AND THE TIZANIDINE WAS HELD FOR ONE HR WHICH WORKED IN MAINTAINING HER BP. PT CONTINUES TO STRUGGLE W SEVERE PAIN AND IS BEING TREATED PER EMAR. PT DID NOT SLEEP MUCH AND IS CURRENTLY SITTING UP IN BED ON HER TABLET. PT IS AXO X4 PLEASANT/COOPERATIVE.
[2020-07-23 05:14] LABS: BASOPHILS ABSOLUTE AUTO 0.07 K/mm3 (0.00-0.23); BASOPHILS PERCENT AUTO 1 % (0-2); EOSINOPHILS ABSOLUTE AUTO 0.37 K/mm3 (0.00-0.68); EOSINOPHILS PERCENT AUTO 5 % (0-6); Hematocrit 39.5 % (33.0-51.0); Hemoglobin 12.5 g/dL (11.5-16.0); IMMATURE GRAN ABSOLUTE AUTO 0.03 K/mm3 (0.00-0.10); IMMATURE GRAN PERCENT AUTO 0 % (0-1); LYMPHOCYTES PERCENT AUTO 55 % (21-46); MONOCYTES PERCENT AUTO 7 % (4-13); Mean Corpuscular HGB 26.7 pg (26.0-34.0); Mean Corpuscular HGB Conc 31.6 g/dL (31.5-36.5); Mean Corpuscular Volume 84 fL (80-100); Mean Platelet Volume 10.7 fL (9.1-12.4); NEUTROPHILS ABSOLUTE AUTO 2.18 K/mm3 (1.96-9.15); NEUTROPHILS PERCENT AUTO 31 % (41-73); Platelet Count 292 K/mm3 (150-400); RDW Coefficient Variation 16.9 % (11.7-14.2); RDW Standard Deviation 51.7 fL (35.1-46.3); Red Blood Cell Count 4.69 M/mm3 (3.80-5.20); White Blood Cell Count 6.95 K/mm3 (4.00-11.30)
[2020-07-23 05:53] LABS: Albumin, Blood 2.4 g/dL (3.4-5.0); Anion Gap 4 mmol/L (6-16); Blood Urea Nitrogen 5 mg/dL (8-24); Bun/Creatinine Ratio 10.8 (12.0-20.0); CO2, Blood 28 mmol/L (21-32); Calcium, Blood 8.4 mg/dL (8.5-10.1); Chloride, Blood 108 mmol/L (98-108); Creatinine, Blood 0.46 mg/dL (0.40-1.00); Glomerular Filtration Rate >60 (60-); Glucose, Blood 86 mg/dL (70-99); Potassium, Blood 4.3 mmol/L (3.5-5.5); Sodium, Blood 140 mmol/L (136-145)
--- NOTE | 2020-07-23 10:47 | NUR ---
PTREQUESTED PAIN MEDICATION BP CHECKED AND WAS LOW ON MACHINE MANUAL READING WAS 78/56. SPOKE TO DR FLORES PT STATES PAIN 05/22 BUT BP TOO LOW TO GIVE PAIN MEDS. REQUESTED FLUID BOLUS, PT APPEARS GROGGY AND A BIT SLUGGISH. ORDER RECIEVED TO HOLD PAIN MEDS UNTIL BP INCREASES. WILL CTM.
--- NOTE | 2020-07-23 16:00 | NUR ---
CALLED DR OSPINA- PT ALERT AND ORIENTED AND IS STILL PAINFULL. PT REQUESTED A CHANGE IN HER PAIN MEDICATION. PT STATED THE FENTANYL HELPS BUT IT WEARS OFF TOO QUICKLY AND SHE IS BACK IN PAIN WITH NOTHING TO TAKE FOR HOURS. PT DOES APPEAR TO BE IN PAIN, CRYING AND ROCKING WHEN IT IS UP TO 10/10. DR BRAMBILA PUT IN THE ORDER CHANGES DCING FENTANYL AND ADDIDNG IV DILAUDID.
--- NOTE | 2020-07-23 16:30 | NUR ---
TRANSFER NOTE- PT TRANSFERED TO [facility] FOR AIRBORN ISOLATION. REPORT COMPLETED WITH GAVIN OLEARY. PT MEDICATED FOR PAIN PRIOR TO THE TRANSFER, CALLED DR ABOUT A CHANGE TO PAIN MEDICATION. DR DUBON CAME TO SEE THE PT (GI DR). SCOPE RESCHEDULED FOR TOMORROW. PT SPECIFICALLY ASKED THE DR FOR FOOD THIS EVENING "REAL FOOD" DR DUBON OK'D WHATEVER DIET SHE WANTS BUT NPO AT MIDNIGHT. MEDS OK WITH SIPS OF WATER. PT REQUESTED ADA DIET. CAUTIONED HER D/T HER NAUSEA THIS MORNING AFTER HER BREAKFAST AND SHE STATED SHE JUST WANTS SOME SOUP. PASSED THIS ALL ON TO GAVIN OLEARY IN REPORT. PT BP ELEVATED PRIOR TO TRANSFER, PAIN MEDICATION GIVEN. PT BP HAS BEEN VERY LABILE TODAY, NOON DOSE OF TIZANIDINE REFUSED BY THE PT HER BP DROPPED VERY LOW AFTER BEING GIVEN THIS MORNING.
--- NOTE | 2020-07-23 18:31 | NUR ---
PATIENT IS ALERT AND ORIENTED AND COOPERATIVE WITH CARE. COMPLAINS OF ABDOMINAL PAIN. SHE IS INDEPENDENT TO THE BSC. SHE IS TO BE NPO AT MIDNIGHT TONIGHT FOR A PROCEDURE TOMORROW. WILL CONTINUE TO MONITOR
--- NOTE | 2020-07-24 01:56 | NUR ---
07/23/201999 CONTACT ISOLATION MAINTAINED; CHEERFUL; RIGHT LOWER BACK SHINGLES ARE SLIGHTLY REDDENED.
--- NOTE | 2020-07-24 05:46 | NUR ---
SHIFT SUMMARY: 54 Y/O FEMALE RESTED COMFORTABLY ALL SHIFT; PT VERY HYPERTENSIVE AT TIMES ALL SHIFT WITH LAST BP 132/89 THIS AM AFTER HYDRALAZINE 20MG IVP GIVEN; PT C/O GENERALIZED PAIN RATED 8/10 WITH DILAUDID 1MG IVP AND NORCO 5/325 X 2 TABLETS GIVEN WITH RELIEFT FELT; ALERT AND ORIENTED X 4; BED LOW POSITION WITH CALL LIGHT AT SIDE; RIGHT LOWER BACK FLANK SHINGLES INTACT; DROPLET ISOLATION MAINTAINED.
--- NOTE | 2020-07-24 06:58 | NUR ---
BROUGHT TO [facility] FROM ROOM 332. ADMISSION TO UNIT STARTED
--- NOTE | 2020-07-24 07:40 | NUR ---
07/24/20 0740 Alexis Pineda PATIENT DETERMINED TO BE ASA APPROPRIATE FOR PROPOFOL SEDATION PRIOR TO START OF PROCEDURE BY DR. Miranda Block Placed. 3-LEAD EKG REVIEWED WITH PHYSICIAN PRIOR TO START OF PROCEDURE.Patient to ENDO 1History, Chart, Medications and Allergies reviewed before start of procedure. MONITOR INTACT WITH CONTINUOUS PULSE OXIMETRY AND INTERMITTENT BP.O2 VIA N/C INTACT THROUGHOUT SEDATION/PROCEDURE.
--- NOTE | 2020-07-24 08:56 | NUR ---
RETURN FROM SURGERY PT RETURNED FROM SURGERY AT 0817. PT TOILETED AND BACK IN BED. PT GIVEN DILADID FOR PAIN AND ZOFRAN FOR NAUSEA. PT VOMITED ONCE AND PRODUCED A SMALL AMOUNT OF BLOOD TINGED SALIVA. ULCER WAS FOUND DURING ENDO. PT EDUCATED ON AVOIDING ACIDIC FOODS AND ALCOHOL WHEN DISCHARGED. PT VERBALIZED UNDERSTANDING. BP ELEVATED UPON ARRIVAL TO UNIT AT 166/120. 10MG OF HYDRALAZINE GIVEN AND BP DECREASED TO 135/96. HR REMAINS ELEVATED IN THE 110S-120S.
--- NOTE | 2020-07-24 09:48 | NUR ---
HYPOTENSION PT EXPERIENCING HYPOTENSION AFTER HYDRALAZINE WAS GIVEN. BP OF 65/49 AT 0946. MD AWARE AND ORDERED 500CC BOLUS. BOLUS RUNNING AND BP SLOWLY IMPROVING. PT STATES SHE DOES NOT FEEL DIZZY. PT EDUCATED TO CALL FOR HELP BEFORE GETTING UP ON HER OWN DUE TO THE HYPOTENSION AND RISK FOR DIZZINESS OR FAINTING. PT STATES SHE UNDERSTANDS. WILL CONTINUE TO MONITOR.
[2020-07-24 09:50] LABS: Anion Gap 7 mmol/L (6-16); Blood Urea Nitrogen 4 mg/dL (8-24); Bun/Creatinine Ratio 7.9 (12.0-20.0); CO2, Blood 28 mmol/L (21-32); Calcium, Blood 8.4 mg/dL (8.5-10.1); Chloride, Blood 106 mmol/L (98-108); Creatinine, Blood 0.51 mg/dL (0.40-1.00); Glomerular Filtration Rate >60 (60-); Glucose, Blood 180 mg/dL (70-99); Potassium, Blood 4.5 mmol/L (3.5-5.5); Sodium, Blood 141 mmol/L (136-145)
--- NOTE | 2020-07-24 10:16 | NUR ---
HYPOTENSION CONT. DR. FLORES NOTIFIED THAT AFTER 500CC BOLUS BP REMAINS IN THE 70S SYSTOLIC. SECOND 500CC BOLUS ORDERED. IV PAIN MEDS AND ZANAFLEX DCED FOR NOW. PT IS VERY SLEEPING IN ROOM, BUT AROUSABLE TO VOICE.
--- NOTE | 2020-07-24 11:43 | NUR ---
PT REFUSING PO NORCO FOR PAIN RELIEF PT UPSET ABOUT PAIN MANAGMENT AFTER IV DILADID WAS DC'ED THIS AM. PT EDUCATED ON GABAPENTIN AND HOW IT MIGHT HELP HER NERVE PAIN. PT BECAME ANGRY THAT WE ARE NOT GIVING HER WHAT WORKED WELL FOR HER YESTERDAY, WHICH WAS THE IV DILADID. PT RELUCTANTLY AGREED TO TAKE THE GABAPENTIN, BUT ONLY DID SO TO "PROVE IT DOESNT WORK". PT OFFERED NORCO. PT ANGRY WITH THIS OPTION AND REFUSED IT STATING IT HURTS HER ABD TOO MUCH. PT OFFERED SOMETHING FOR NAUSEA. PT REPLIED "IF ITS ZOFRAN, I DON'T WANT IT." PT INFORMED THAT IT IS PHENEGRAN AND PT AGREE TO ACCEPT MEDICATION.
--- NOTE | 2020-07-24 16:41 | NUR ---
SHIFT SUMMARY PT HYPOTENSIVE EPISODE THIS AM RESOLVED WITH 2 500CC BOLUSES. PT MAINTAINING PRESSURE WELL SINCE. SEE PREVIOUS NOTES. PT PAIN MANAGED WELL SINCE GIVING HER DILADID. PT IS TOLERATING 0.25MG DOSES ORDERED. PT HAD EGD COMPLETED THIS AM. PT MEDICATED FOR NAUSEA TWICE THIS SHIFT. PT REQUESTING TO SAVE LAST DOSE OF PHENEGRAN FOR THIS EVENING. PT MEDICATED T/O THE DAY FOR PAIN FROM BACK (SHINGLES) AND ABD. NO OTHER CHANGES IN ASSESSMENT AT THIS TIME. VS REVIEWED. PT RESTING IN BED. CALL LIGHT IN REACH. DENIES OTHER NEEDS AT THIS TIME.
--- NOTE | 2020-07-24 18:16 | NUR ---
ABD PAIN AFTER DINNER PT WAS INCREASED TO SOFT BITE SIZE. 15 MINUTES AFTER EATING, PT STARTED DEVELOPING 9/10 ABD PAIN. PT MEDICATED PER EMAR. DIET DOWNGRADED BACK TO FULL LIQUID.
--- NOTE | 2020-07-24 23:36 | NUR ---
PT RIGHT LOWER BACK SHINGLES ARE SCABBED OVER; HAPPY AND COOPERATIVE.
--- NOTE | 2020-07-25 03:29 | NUR ---
SHIFT SUMMARY: 54 Y/O FEMALE RESTED COMFORTABLY ALL SHIFT; PT OCCASIONALLY C/O BACK PAIN RATED 7/10 WITH DILAUDID 0.5MG IVP GIVEN WITH RELIEF FELT; PTS RIGHT LOWER BACK SHINGLES ARE SCABBED OVER AND NON DRAINING; AIRBORNE PRECAUTIONS MAINTAINED; PT ABLE TO TRANSFER AND PIVOT ONTO BSC PER SELF TO VOID; ALERT AND ORIENTED X 4; BED LOW POSITION WITH CALL LIGHT AT SIDE.
[2020-07-25] MEDS ORDERED: TRAM50 PO (11:15)
[2020-07-25] MEDS ORDERED: PANT40 (11:15)
[2020-07-25] MEDS ORDERED: VALA500 PO (11:15)
--- NOTE | 2020-07-25 12:27 | NUR ---
DISCHARGE NOTE PATIENT DISCHARGED TO HOME. PATIENT ALERT AND ORIENTED THIS SHIFT. PATIENT WITHOUT NAUSEA THIS SHIFT. PATIENT STANDBY ASSIST TO BSC THIS SHIFT. PATIENT PROVIDED WITH DISCHARGE AND MEDICATION INSTRUCTIONS. PATIENT STATES NO QUESTIONS AT THIS TIME. POWERGLIDE REMOVED PRIOR TO DISCHARGE. PATIENT FAMILY TO THE FLOOR FOR DISCHARGE. PATIENT TO VEHICLE IN WHEELCHAIR WITH NAIF Azevedo
== END 2020-07-25 12:17 | disposition home or self-care (01) | DRG 381 ==
LOC: ER 03:12 → ERHOLD 03:13 → MEDS 03:13
PROVIDERS: Emergency Medicine; Family Medicine; Internal Medicine; Student in an Organized Health Care Education/Training Program; ADMIT Internal Medicine
PROC: 0DB68ZX Excision of Stomach, Via Natural or Artificial Opening Endoscopic, Diagnostic (ICD-10-PCS; 2020-07-24)
PROC: 0DBA8ZX Excision of Jejunum, Via Natural or Artificial Opening Endoscopic, Diagnostic (ICD-10-PCS; principal; 2020-07-24 07:30)
DX: K28.9 Gastrojejunal ulcer, unspecified as acute or chronic, without hemorrhage or perforation (principal); E87.1 Hypo-osmolality and hyponatremia; E87.2 Acidosis; E87.6 Hypokalemia; E11.9 Type 2 diabetes mellitus without complications; D86.9 Sarcoidosis, unspecified; E78.5 Hyperlipidemia, unspecified; E11.40 Type 2 diabetes mellitus with diabetic neuropathy, unspecified; Z98.84 Bariatric surgery status; Z89.511 Acquired absence of right leg below knee; E86.0 Dehydration; E83.42 Hypomagnesemia; K21.9 Gastro-esophageal reflux disease without esophagitis; Z20.828 Contact with and (suspected) exposure to other viral communicable diseases; G56.00 Carpal tunnel syndrome, unspecified upper limb
CPT/HCPCS: 36415; 74177; 80048; 80053; 80069; 81001; 82010; 82947; 83036; 83690; 83735; 85025; 87086; 88305; 88313; 88342; 96361; 96365; 96372; 96375; 96376; 99284-25; A9270-GY; C9113; G0378; J0360; J1170; J1200; J1630; J1650; J1815; J2250; J2405; J2550; J2704; J2765; J3010; J3475; J3480; J7030; J7040; J7050; J7120; Q9967; U0002

== ENCOUNTER 2021-02-09 11:38 | Emergency (ER) | payer OTHER ==
[~2021-02-09] VITALS: Ht 167.6 cm; Wt 57.1 kg
[~2021-02-09 11:38] MED LIST changes: +BENADRYL25 MG PO; +PANT40; +TRAM50 PO; +VALA500 PO
[2021-02-09] MEDS ORDERED: HYDR1TAB94 PO (12:41)
== END 2021-02-09 13:14 | disposition home or self-care (01) ==
LOC: ER 11:38
DX: O71.89 Other specified obstetric trauma (principal); E11.40 Type 2 diabetes mellitus with diabetic neuropathy, unspecified; I10 Essential (primary) hypertension; Z87.891 Personal history of nicotine dependence; W18.30XA Fall on same level, unspecified, initial encounter
CPT/HCPCS: 73502; 99283-25; A9270

== ENCOUNTER 2021-06-18 08:02 | Day surgery (SDC) | payer OTHER ==
[~2021-06-18] VITALS: Ht 167.6 cm; Wt 54.0 kg
--- NOTE | 2021-06-18 09:15 | NUR ---
06/18/21 0915 Hilario Baldwin BUPIVACAINE 0.5% MIXED W/ LIDOCAINE 1% 1:100,000 1:1 PER ORDER FOR INJECTION AT [facility] BY DR GONZALEZ. 10 MLS [facility] AT [facility]
--- NOTE | 2021-06-18 10:18 | NUR ---
06/18/21 1018 Warner Chavez PATIENT PAIN WAS RATED 4/10 AT DISCHARGE TO HOME/ PATIENT STATES THAT IS TOLERABLE LEVEL FOR HER WITH OUT FURTHER MEDICATION.
== END 2021-06-18 10:10 | disposition home or self-care (01) ==
LOC: ORSCSDS 08:02
PROVIDERS: Orthopaedic Surgery
PROC: 0LN70ZZ Release Right Hand Tendon, Open Approach (ICD-10-PCS; principal; 2021-06-18 09:15)
DX: M65.331 Trigger finger, right middle finger (principal); I10 Essential (primary) hypertension; Z87.891 Personal history of nicotine dependence; Z79.899 Other long term (current) drug therapy
CPT/HCPCS: J0690; J2250; J2704; J3010

== ENCOUNTER → 2021-09-17 | Outpatient (CLI) | payer OTHER ==
[2021-09-17 17:43] LABS: C-REACTIVE PROTEIN, EXT RANGE <0.290 mg/dL (0.000-0.300)
== END | disposition home or self-care (01) ==
LOC: LAB 15:56 → LAB SHORT 15:56
PROVIDERS: Physician Assistant
DX: M25.50 Pain in unspecified joint (principal)
CPT/HCPCS: 82607; 82746; 85651; 86038; 86140; 86430

== ENCOUNTER → 2022-02-11 | Outpatient (CLI) | payer OTHER ==
[~2022-02-11] MED LIST changes: +PROP10 PO
[2022-02-11 11:05] LABS: Calcium, Urine 13.6 mg/dL (< 17.5); Calcium, Urine Calculation 122.4 mg/24hrs (42.0-353.0)
[2022-02-11 11:11] LABS: Creatinine Urine 65.5 mg/dL (27.00-270.00)
== END | disposition home or self-care (01) ==
LOC: LAB SHORT 09:21
PROVIDERS: Internal Medicine Endocrinology, Diabetes & Metabolism
DX: M81.0 Age-related osteoporosis without current pathological fracture (principal)
CPT/HCPCS: 82340; 82570

== ENCOUNTER → 2022-03-17 | Outpatient (CLI) | payer OTHER ==
[2022-03-17 10:50] LABS: Alanine Aminotransfer (ALT/SGP 24 U/L (12-78); Albumin, Blood 3.7 g/dL (3.4-5.0); Albumin/Globulin Ratio 1.2 (0.8-1.8); Alk Phos 81 U/L (50-136); Anion Gap 6 mmol/L (6-16); Aspartate Aminotrans (AST/SGOT 17 U/L (12-37); Bilirubin, Total 0.2 mg/dL (0.1-1.0); Blood Urea Nitrogen 13 mg/dL (8-24); Bun/Creatinine Ratio 35.9 (12.0-20.0); CO2, Blood 29 mmol/L (21-32); Chloride, Blood 106 mmol/L (98-108); Creatinine, Blood 0.36 mg/dL (0.40-1.00); Globulin, Blood 3.2 g/dL (2.2-4.0); Glomerular Filtration Rate >60 (60-); Glucose, Blood 241 mg/dL (70-99); Phosphorus, Blood 3.3 mg/dL (2.5-4.9); Potassium, Blood 3.8 mmol/L (3.5-5.5); Sodium, Blood 141 mmol/L (136-145); Total Protein, Blood 6.9 g/dL (6.4-8.2)
== END | disposition home or self-care (01) ==
LOC: LAB SHORT 09:35 → LAB 09:35
PROVIDERS: Internal Medicine Hematology & Oncology
DX: M81.0 Age-related osteoporosis without current pathological fracture (principal)
CPT/HCPCS: 80053; 84100

== ENCOUNTER 2023-03-03 06:09 | Emergency (ER) | payer OTHER ==
[~2023-03-03] VITALS: Ht 162.6 cm; Wt 68.0 kg
[2023-03-03] MEDS ORDERED: LOSA25 PO (06:38)
[2023-03-03] MEDS ORDERED: Prilosec2.5 MG PO (06:38)
[2023-03-03] MEDS ORDERED: Acetaminophen650 M1 PO (06:39)
[2023-03-03] MEDS ORDERED: HYDCHL12.5 PO (06:39)
[2023-03-03] MEDS ORDERED: BENADRYL25 MG PO (06:39)
[2023-03-03] MEDS ORDERED: Amlodipine Bes2.5 MG PO (06:39)
[2023-03-03 07:22] LABS: BASOPHILS ABSOLUTE AUTO 0.06 K/mm3 (0.00-0.23); BASOPHILS PERCENT AUTO 1 % (0-2); EOSINOPHILS PERCENT AUTO 5 % (0-6); Hematocrit 34.4 % (33.0-51.0); Hemoglobin 10.8 g/dL (11.5-16.0); IMMATURE GRAN ABSOLUTE AUTO 0.02 K/mm3 (0.00-0.10); IMMATURE GRAN PERCENT AUTO 0 % (0-1); LYMPHOCYTES ABSOLUTE AUTO 2.38 K/mm3 (0.84-5.20); LYMPHOCYTES PERCENT AUTO 36 % (21-46); MONOCYTES ABSOLUTE AUTO 0.39 K/mm3 (0.16-1.47); MONOCYTES PERCENT AUTO 6 % (4-13); Mean Corpuscular HGB 23.4 pg (26.0-34.0); Mean Corpuscular HGB Conc 31.4 g/dL (31.5-36.5); Mean Corpuscular Volume 75 fL (80-100); Mean Platelet Volume 10.9 fL (9.1-12.4); NEUTROPHILS ABSOLUTE AUTO 3.49 K/mm3 (1.96-9.15); NEUTROPHILS PERCENT AUTO 53 % (41-73); Platelet Count 265 K/mm3 (150-400); RDW Coefficient Variation 15.2 % (11.7-14.2); RDW Standard Deviation 41.1 fL (35.1-46.3); Red Blood Cell Count 4.62 M/mm3 (3.80-5.20); White Blood Cell Count 6.64 K/mm3 (4.00-11.30)
[2023-03-03 07:58] LABS: Albumin, Blood 3.9 g/dL (3.4-5.0); Albumin/Globulin Ratio 1.1 (0.8-1.8); Bilirubin, Direct 0.1 mg/dL (0.0-0.3); Bilirubin, Indirect 0.3 mg/dL (0.1-0.7); Bilirubin, Total 0.4 mg/dL (0.1-1.0); Bun/Creatinine Ratio 30.3 (12.0-20.0); Calcium, Blood 8.7 mg/dL (8.5-10.1); Creatinine, Blood 0.4 mg/dL (0.40-1.00); Globulin, Blood 3.6 g/dL (2.2-4.0); Magnesium, Blood 1.8 mg/dL (1.6-2.4); Potassium, Blood 3.7 mmol/L (3.5-5.5); Total Protein, Blood 7.5 g/dL (6.4-8.2)
[2023-03-03 09:30] VITALS: BP 161/88
[2023-03-03] MEDS ORDERED: FAMO20 PO (09:59)
== END 2023-03-03 10:09 | disposition home or self-care (01) ==
LOC: ER 06:09
PROVIDERS: Student in an Organized Health Care Education/Training Program
DX: K29.70 Gastritis, unspecified, without bleeding (principal); I10 Essential (primary) hypertension; R51.9 Headache, unspecified; Z88.2 Allergy status to sulfonamides; Z88.0 Allergy status to penicillin; Z88.1 Allergy status to other antibiotic agents; Z88.6 Allergy status to analgesic agent; Z88.5 Allergy status to narcotic agent; Z79.899 Other long term (current) drug therapy; E11.40 Type 2 diabetes mellitus with diabetic neuropathy, unspecified
CPT/HCPCS: 36415; 71046; 80048; 80076; 83735; 83880; 84484; 85025; 93005; 93010; 96374; 96375; 99284-25; A9270; J1200; J2550; J2765; J7030

== ENCOUNTER → 2023-04-03 | Outpatient (CLI) | payer OTHER ==
[~2023-04-03] MED LIST changes: +Acetaminophen650 M1 PO; +Amlodipine Bes2.5 MG PO; +FAMO20 PO; +HYDCHL12.5 PO; +Prilosec2.5 MG PO
[2023-04-05 11:05] LABS: Candida species (DNA Probe) Positive (NEGATIVE); G. vaginalis (DNA Probe) Positive (NEGATIVE); T. vaginalis (DNA Probe) Negative (NEGATIVE)
== END | disposition home or self-care (01) ==
LOC: LAB SHORT 14:02 → LAB 14:02 → LAB SHORT 04-04 14:02
PROVIDERS: Family Medicine
DX: B37.31 Acute candidiasis of vulva and vagina (principal)
CPT/HCPCS: 87480; 87510; 87660

== ENCOUNTER 2024-08-09 18:54 | Emergency (ER) | payer OTHER ==
[~2024-08-09] VITALS: Ht 165.1 cm; Wt 56.7 kg
[~2024-08-09 18:54] MED LIST changes: +INSULIN GL300 UNIT/2; +NOVOLOG100 UNIT/2; +ZANAFLEX413
[2024-08-09] MEDS ORDERED: Ondansetron HCl 2 MG / ML 2ML Vial IV PRN (19:10)
[2024-08-09] MEDS ORDERED: HYDROmorphone HCl/Pf 1MG SYR IV ONE (19:15)
[2024-08-09 20:02] LABS: BASOPHILS ABSOLUTE AUTO 0.04 K/mm3 (0.00-0.23); BASOPHILS PERCENT AUTO 1 % (0-2); EOSINOPHILS ABSOLUTE AUTO 0.01 K/mm3 (0.00-0.68); EOSINOPHILS PERCENT AUTO 0 % (0-6); Hemoglobin 8.1 g/dL (11.5-16.0); IMMATURE GRAN ABSOLUTE AUTO 0.04 K/mm3 (0.00-0.10); IMMATURE GRAN PERCENT AUTO 1 % (0-1); LYMPHOCYTES ABSOLUTE AUTO 0.82 K/mm3 (0.84-5.20); LYMPHOCYTES PERCENT AUTO 11 % (21-46); MONOCYTES ABSOLUTE AUTO 0.15 K/mm3 (0.16-1.47); MONOCYTES PERCENT AUTO 2 % (4-13); Mean Corpuscular HGB 17.3 pg (26.0-34.0); Mean Corpuscular HGB Conc 28.9 g/dL (31.5-36.5); Mean Corpuscular Volume 60 fL (80-100); NEUTROPHILS ABSOLUTE AUTO 6.37 K/mm3 (1.96-9.15); NEUTROPHILS PERCENT AUTO 86 % (41-73); Platelet Count 326 K/mm3 (150-400); RDW Coefficient Variation 20.2 % (11.7-14.2); Red Blood Cell Count 4.67 M/mm3 (3.80-5.20); White Blood Cell Count 7.43 K/mm3 (4.00-11.30)
[2024-08-09 20:03] LABS: Albumin, Blood 3.7 g/dL (3.4-5.0); Bilirubin, Total 0.4 mg/dL (0.1-1.0); Bun/Creatinine Ratio 24.8 (12.0-20.0); Calcium, Blood 9.2 mg/dL (8.5-10.1); Creatinine, Blood 0.48 mg/dL (0.40-1.00); Globulin, Blood 3.6 g/dL (2.2-4.0); Total Protein, Blood 7.3 g/dL (6.4-8.2)
[2024-08-09] MEDS ORDERED: Droperidol 5 mg/2 ml Vial IV ONE (20:15)
[2024-08-09] MEDS ORDERED: Magnesium Citr296 ML PO (21:24)
[2024-08-09] MEDS ORDERED: HYDROCODONE-AC1 EA10 PO (21:24)
[2024-08-09] MEDS ORDERED: Magic Bullet10 MG PR (21:24)
[2024-08-09] MEDS ORDERED: DICY20 PO (21:24)
[2024-08-09 21:30] VITALS: BP 192/96
== END 2024-08-09 21:44 | disposition home or self-care (01) ==
LOC: ER 18:54
PROVIDERS: Emergency Medicine
DX: I88.0 Nonspecific mesenteric lymphadenitis (principal); K59.00 Constipation, unspecified; E11.40 Type 2 diabetes mellitus with diabetic neuropathy, unspecified; I10 Essential (primary) hypertension; Z87.891 Personal history of nicotine dependence; Z79.4 Long term (current) use of insulin; Z79.899 Other long term (current) drug therapy; Z88.2 Allergy status to sulfonamides; Z88.0 Allergy status to penicillin; Z88.6 Allergy status to analgesic agent; Z88.5 Allergy status to narcotic agent; Z88.8 Allergy status to other drugs, medicaments and biological substances
CPT/HCPCS: 74177; 80053; 83690; 84484; 85025; 93005; 93010; 96374-59; 96375; 99285-25; J1170; J1790; J2405; Q9967

== ENCOUNTER → 2025-01-21 | Outpatient (CLI) | payer OTHER ==
[~2025-01-21] MED LIST changes: +DICY20 PO; +HYDROCODONE-AC1 EA10 PO; +Magic Bullet10 MG PR; +Magnesium Citr296 ML PO
== END ==
LOC: LAB SHORT 15:29 → LAB 15:29
DX: N10 Acute pyelonephritis (principal)
CPT/HCPCS: 87077; 87086; 87186

== ENCOUNTER 2025-03-27 07:28 | Emergency (ER) | payer OTHER ==
[~2025-03-27] VITALS: Ht 165.1 cm; Wt 57.1 kg
[2025-03-27 07:46] VITALS: BP 187/87
[2025-03-27] MEDS ORDERED: IBU800 M1 PO (07:50)
[2025-03-27] MEDS ORDERED: CEPH500 PO (08:25)
== END 2025-03-27 08:52 | disposition home or self-care (01) ==
LOC: ER 07:28
DX: L02.416 Cutaneous abscess of left lower limb (principal); E11.40 Type 2 diabetes mellitus with diabetic neuropathy, unspecified; I10 Essential (primary) hypertension; Z87.891 Personal history of nicotine dependence; Z79.4 Long term (current) use of insulin; Z79.899 Other long term (current) drug therapy; Z88.2 Allergy status to sulfonamides; Z88.0 Allergy status to penicillin; Z88.6 Allergy status to analgesic agent; Z88.5 Allergy status to narcotic agent; Z88.8 Allergy status to other drugs, medicaments and biological substances
CPT/HCPCS: 99283-25

== ENCOUNTER 2025-03-30 06:58 | Emergency (ER) | payer OTHER ==
[~2025-03-30] VITALS: Ht 165.1 cm; Wt 57.1 kg
[~2025-03-30 06:58] MED LIST changes: +CEPH500 PO; +IBU800 M1 PO
[2025-03-30 07:07] VITALS: BP 145/75
[2025-03-30] MEDS ORDERED: CLIN300 PO (08:21)
== END 2025-03-30 08:47 | disposition home or self-care (01) ==
LOC: ER 06:58
DX: L02.415 Cutaneous abscess of right lower limb (principal); Z88.2 Allergy status to sulfonamides; Z88.1 Allergy status to other antibiotic agents; Z88.5 Allergy status to narcotic agent; Z79.899 Other long term (current) drug therapy; Z79.2 Long term (current) use of antibiotics; Z79.4 Long term (current) use of insulin; E11.40 Type 2 diabetes mellitus with diabetic neuropathy, unspecified; Z87.891 Personal history of nicotine dependence
CPT/HCPCS: 10061; 99283-25

== ENCOUNTER → 2025-06-02 | Outpatient (CLI) | payer OTHER ==
[~2025-06-02] MED LIST changes: +CLIN300 PO
== END ==
LOC: LAB SHORT 16:39 → LAB 16:39
DX: E11.9 Type 2 diabetes mellitus without complications (principal)
CPT/HCPCS: 82043

== ENCOUNTER 2025-06-29 10:43 | Emergency (ER) | payer OTHER ==
[~2025-06-29] VITALS: Ht 165.1 cm; Wt 57.6 kg
[2025-06-29 11:20] VITALS: BP 170/98
[2025-06-29] MEDS ORDERED: Clindamycin HC150 MG PO (13:49)
[2025-06-29] MEDS ORDERED: MUPIROCIN1 G1 TOP (13:49)
== END 2025-06-29 13:55 | disposition home or self-care (01) ==
LOC: ER 10:43
DX: L03.311 Cellulitis of abdominal wall (principal); I10 Essential (primary) hypertension; E11.40 Type 2 diabetes mellitus with diabetic neuropathy, unspecified; Z87.891 Personal history of nicotine dependence
CPT/HCPCS: 99282; A9270

== ENCOUNTER → 2025-07-03 | Outpatient (CLI) | payer OTHER ==
[~2025-07-03] MED LIST changes: +Clindamycin HC150 MG PO; +MUPIROCIN1 G1 TOP
== END ==
LOC: LAB SHORT 12:52 → LAB 12:52
DX: L02.211 Cutaneous abscess of abdominal wall (principal)
CPT/HCPCS: 87070; 87075; 87077; 87147; 87186; 87205